=== PATIENT | female | born 1950 | race Caucasian/White ===

== ENCOUNTER 2022-07-14 09:09 | Inpatient (IN) | payer MEDICARE, SELFPAY ==
[2022-07-14] VITALS (12 sets, daily range): BP systolic 74–191; BP diastolic 44–151; PULSE 72–107; RESP 16–24; TEMP 35.8–37.2; O2SAT 92–97; BMI 39.6; BMI 40.2
--- NOTE | 2022-07-14 09:30 | RAD_ITS ---
STUDY: X-RAY CHEST REASON FOR EXAM: Female, 72 years old. Chest pain TECHNIQUE: Single AP portable view of the chest. COMPARISON: None. FINDINGS: EKG electrodes are seen. The lungs are clear and expanded. There is no demonstrated pleural abnormality. Normal size heart. Normal mediastinum and stephen. Normal visualized pulmonary arteries. There is atherosclerotic calcification of the aortic arch with tortuosity. There are diffuse degenerative changes of the visualized thoracic spine. Normal visualized ribs, clavicles, and shoulders. There is no demonstrated abnormality of the visualized soft tissue structures of the upper abdomen. RAD/Chest 1 View (Portable) IMPRESSION: No acute abnormality is seen. Electronically Signed: Weston Temple MD at 10:54 EST ,
--- NOTE | 2022-07-14 09:31 | EDS_ITS ---
HPI History of Present Illness Chief Complaint: Shortness of Breath Informant: patient Onset/Context/Timing Onset: Today and Yesterday Context: gradual Timing: Continuous Quality: Positive for Dyspnea on exertion; Negative for Orthopnea, PND or Wheezing Current Severity: Gone Maximum Severity: Mild Worsened by: Exertion Relieved by: Rest Associated Symptoms Negative for cough or rhinorrhea Chest Pain: Positive for None Narrative Narrative: 72-year-old female past medical history of hypertension but took her self off the medication has been noncompliant with it. States that she has been short of breath since yesterday morning gradual onset of progressively got worse. Denies any chest pain. No leg swelling. No hemoptysis. She is never had a DVT or PE she has had no recent hospitalization about she says she has been in hospital since she has been a child. Denies any nausea, vomiting or diarrhea. No fever or chills. No cough. No trouble urinating or moving her bowels. Said she lives a pretty quiet life at home with her dogs. She was on blood pressure meds but when COVID hit she kind of lost contact with her primary care physician. PE Risk Factors: Negative for Cancer, OCP + Smoking + > 35, Prior DVT or PE, Recent immobilization, Recent surgery or Recent travel Prior similar symptoms: No Recent Illness/Hospitalization: No PFSH PFS Medical History (Updated 07/14/22 @ 14:[address] Jeremias Richardson MD) High cholesterol HTN (hypertension) Home Medications cholecalciferol (vitamin D3) 25 mcg (1,000 unit) tablet 50 mcg PO DAILY SUPPLEMENT 07/14/22 [History Last Taken 07/13/22 09:00] edelmira root extract 50 mg tablet 100 mg PO DAILY SUPPLEMENT 07/14/22 [History Last Taken 07/13/22 09:00] omega-3 fatty acids 1,000 mg capsule 2,000 mg PO DAILY SUPPLEMENT 07/14/22 [History Last Taken 07/13/22 09:00] potassium citrate 99 mg capsule 198 mg PO DAILY SUPPLEMENT 07/14/22 [History Last Taken 07/13/22 09:00] turmeric root extract 500 mg tablet 1,000 mg PO DAILY SUPPLEMENT 07/14/22 [History Last Taken 07/13/22 09:00] vitamin E mixed 1,000 unit capsule 2,000 unit PO DAILY SUPPLEMENT 07/14/22 [History Last Taken 07/13/22 09:00] Allergy/AdvReac Type Severity Reaction Status Date / Time Penicillins [PCN] Allergy Anaphylaxis Verified 07/14/22 09:10 Sulfa (Sulfonamide Allergy Anaphylaxis Verified 07/14/22 09:10 Antibiotics) Surgical History (Updated 07/14/22 @ 13:51 by Georgette Ackerman) H/O right breast biopsy Social History Smoking Status: Never smoker ROS ROS ED ROS Narrative Shortness of breath. Review of Systems ROS Unobtainable: Denies due to encephalopathy Constitutional Constitutional ED: Denies chills or fever(s) Eyes Eyes: Denies blurry vision ENT ENT ED: Denies ear pain Cardiovascular Cardiovascular: Denies chest pain, orthopnea or paroxysmal nocturnal dyspnea Respiratory/Chest Respiratory/Chest: Reports dyspnea and dyspnea on exertion; Denies cough, orthopnea, paroxysmal nocturnal dyspnea or sputum Gastrointestinal Gastrointestinal: Denies abdominal pain or constipation Genitourinary Genitourinary ED: Denies dysuria or hematuria Musculoskeletal Musculoskeletal: Denies arthralgias Integumentary Denies abscess Neurologic Neurologic: Denies headache(s) Psychiatric Psychiatric: Denies anxiety or depression Endocrine Endocrinology: Denies cold intolerance Hematologic/Lymphatic Hematologic/Lymphatic: Denies easy bleeding or easy bruising Allergic/Immunologic Allergic/Immunologic ED: Denies mouth swelling or tongue swelling EXAM Physical Exam Narrative Exam Narrative: 72-year-old female. No acute distress. Vital signs stable except for pressures elevated 191/151. Pulse ox 90% on room air no hypoxia. She is in no distress. States she is not short of breath just sitting here. H EENT exam unremarkable. Neck nontender no lymphadenopathy. Lungs clear to auscultation bilaterally. Heart regular rhythm rate about 110. No murmur. Abdomen soft nontender normal bowel sounds no peritoneal signs. Moving all 4 extremities. Calves are nontender without edema or cords. She has trace edema in her ankles. Neurologically she is awake and alert with no focal motor deficits. Const Vital Signs: 07/14/22 09:11 07/14/22 09:15 07/14/22 09:19 Temperature 96.4 F L 96.8 F L Temperature Source Temporal Temporal Pulse Rate 85 107 H Respiratory Rate 24 H 22 H Respiratory Effort Short of Breath Respiratory Depth Shallow Respiratory Pattern Tachypnea Blood Pressure 191/151 H Blood Pressure Mean 164 Pulse Ox 92 97 Oxygen Delivery Method Room Air Room Air Room Air 07/14/22 09:55 07/14/22 11:52 07/14/22 12:22 Temperature 97.8 F 98.9 F Temperature Source Temporal Temporal Pulse Rate 72 77 Respiratory Rate 16 17 Respiratory Effort Respiratory Depth Respiratory Pattern Blood Pressure 85/57 L 74/44 L Blood Pressure Mean 66 54 Pulse Ox 95 92 94 Oxygen Delivery Method Room Air Room Air Room Air 07/14/22 13:00 Temperature Temperature Source Pulse Rate 77 Respiratory Rate 17 Respiratory Effort Respiratory Depth Respiratory Pattern Blood Pressure Blood Pressure Mean Pulse Ox 94 Oxygen Delivery Method Room Air Positive well nourished, well developed and obese; Negative for cachectic, contractures or unkempt General Appearance ED: well developed and NAD; Negative for unkempt, cachectic, contractures or pallor Nutritional Appearance: obese; Negative for cachectic HEENT Reports moist mucous membranes; Denies dry mucous membranes atraumatic; Negative for trauma or tenderness Mouth ED: No dry mucous membranes Mouth: No dry mucous membranes Eyes PERRL and EOMs intact bilaterally General Eye ED: Negative for pale conjunctiva or scleral icterus Neck no lymphadenopathy, supple, no meningeal signs and no JVD General: Negative for tenderness Lymph Lymphatic: Negative for other Chest Wall Chest: Negative for other Resp normal respiratory effort and clear to auscultation bilaterally Effort and Inspection: Negative for pain with movement Auscultation: Negative for rales, rhonchi or wheezes Cardio regular rhythm, S1 normal heart sound, S2 normal heart sound and no murmurs; Negative for regular rate Rate: tachycardic GI non-tender, non-distended and no masses Inspection: Negative for other Auscultation: normoactive bowel sounds Palpation: soft; Negative for tender or guarding Back/Spine no CVA tenderness and normal to inspection General Back: Negative for CVA tenderness or tenderness Extremity normal to inspection Extremity Narrative: Trace ankle edema. No calf swelling or tenderness. No cords. General Extremety ED: Yes edema; Negative for tenderness General Extremity: edema Neuro oriented x3 and CN's II-XII intact bilaterally Sensorium / Orientation: alert, oriented to person, oriented to place and oriented to time; Negative for orientation impaired, confused, lethargic or stuporous Speech: speech normal Motor Exam: strength 5/5 throughout Psych mental status grossly normal Appearance: Negative for unkempt Attitude: No agitated Mood & Affect: Negative for depressed Thought Process: No normal thought process Skin no wounds and skin turgor normal General Skin Exam: Negative for jaundice or pallor Lesions: no lesions Rashes: no rashes Trauma: Negative for abrasion or laceration MDM MDM MDM Narrative Medical decision making narrative: 72-year-old female with shortness of breath that began yesterday. Exam benign. Lungs are clear. This might all be secondary to her elevated blood pressure of 191/151. There is no obvious signs of failure. She has had 0 chest pain. No cough or fever. I do not think it is a viral related. Initially I do not think she has a respiratory tract infection. She will undergo a cardiac work-up with a chest x-ray. She will be given labetalol IV for her blood pressure. She was previously treated for blood pressure but took her self off the medications and lost follow-up with her primary care physician. Patient was given IV labetalol 20 mg and took her blood pressure from 191/150 5- 90 1/60. She is feeling lightheaded. She will be given a 500 cc fluid bolus. I did reassess her. She just feels lightheaded where she has been laid close to flat in bed. Repeat exam at 11:55 AM patient received a liter normal saline pressure still remains low around 90 systolic. She is given another fluid bolus. She and I discussed her test results. I think her untreated hypertension has caused her to have renal insufficiency and kidney damage with a BUN 24 creatinine 1.93 we have no old labs here to compare it to she said she did have abnormal kidney function at her doctor's office. She also has an elevated troponin of 2410 which makes me concerned for a non-ST elevation IN and possibly a hypertensive cardiomyopathy. I am also going to obtain a ultrasound of her right leg to rule out a DVT. And have a hospitalist on page to admit her. Ultrasound of the leg shows extensive DVT from her right ankle to her right groin. She will be started on a heparin bolus and drip. Due to that and her history of shortness of breath I am going to obtain a CTA of her chest for the strong possibility that she has a PE or even a saddle emboli. Again she is having no chest pain. Repeat exam at 2:14 PM patient doing well. She will be admitted to the floor. Her vital signs are improved. Her blood pressures are improving after IV fluids and currently 104/73. Lab Data Attestation: I reviewed the patient's lab results. Lab results narrative: CBC shows a white count of 10. H&H of 14.1 and 43. Platelets 198. Chemistries are unremarkable gap 11. BUN of 24 creatinine 1.93 consistent with renal sufficiency which may also be from her blood pressure. Glucose 155. Her troponin is elevated 2410 she may have had a non-ST elevation IN from her significant hypertension. Right lower extremity ultrasound shows extensive DVT from the right groin to the right ankle. BNP is elevated at 569. CTA shows multiple bilateral pulmonary emboli. No saddle emboli. Labs: Laboratory Results - last 24 hr 07/14/22 07/14/22 07/14/22 11:10 11:10 11:10 WBC 10.0 RBC 4.87 Hgb 14.1 Hct 43.4 MCV 89.1 MCH 29.0 MCHC 32.5 RDW Std Deviation 42.3 RDW Coeff of [place] 13.0 Plt Count 198 MPV 9.6 Immature Gran % (Auto) 0.500 Neut % (Auto) 76.5 H Lymph % (Auto) 14.4 L [place] % (Auto) 8.2 Eos % (Auto) 0.1 Baso % (Auto) 0.3 Absolute Neuts (auto) 7.7 Absolute Lymphs (auto) 1.45 Nucleated RBC % 0 Sodium 138 Potassium 4.5 Chloride 105 Carbon Dioxide 22.0 Anion Gap 11 BUN 24 H Creatinine 1.93 H Estim Creat Clear Calc 26.00 Est GFR (MDRD) Af Amer 33 L Est GFR (MDRD) Non-Af 27 L BUN/Creatinine Ratio 12.4 Glucose 155 H Calcium 9.0 Troponin I High Sens 2410 H* B-Natriuretic Peptide 569.6 H Radiography Chest X-Ray - ED: 1 View, Read by ED Physician, Heart, Lungs, Mediastinum, Bony Structures, No Acute Disease and Chronic Changes Diagnostic Testing: Clinical Impression(s) from Imaging Studies Chest X-Ray 07/14/22 09:30 IMPRESSION: No acute abnormality is seen. Electronically Signed: Weston Temple MD at 10:54 EST , Chest CTA 07/14/22 12:49 IMPRESSION: Bilateral pulmonary emboli as described. Tiny gallstone in the neck of the gallbladder. Electronically Signed: Weston Temple MD at 14:09 EST , Chest x-ray, portable, single view interpreted by myself shows no acute abnormality. Normal cardiac silhouette. No infiltrates. No pulmonary edema. Rhythm Strip Rhythm Strip: Sinus Rhythm Rate: 111 Ectopy: None EKG Initial EKG: Attestation: I personally reviewed and interpreted this EKG as follows: Interpretation: Sinus Rhythm and No Acute Injury Pattern Comments: Sinus tachycardia rate of 111. No signs of IN. She does have ST depression in leads aVL and lead I. No ST elevation. Follow-up EKG: Attestation: I personally reviewed and interpreted this EKG as follows: Interpretation: Sinus Rhythm Comments: Normal sinus rhythm rate of 73. No significant change from the prior EKG. She does have some ST segment flattening in 1 and aVL. No elevation. Prior: Unchanged Critical Care Time Critical Care Time: Yes Critical care time (excluding procedures): 30-74 minutes, Including time spent:, Discussing w/Patient &/or Family/Telephone Maintainer, Discussing w/Consultants, Arranging Admission or Transfer, Performing Direct Patient Care at Bedside and - (33 min) Discharge Plan Dx/Rx/DC Orders Clinical Impression: Acute dyspnea, Non-ST elevated myocardial infarction, Transient hypotension, Hypertensive cardiovascular-renal disease, Hypertension, Acute deep vein thrombosis (DVT) of right lower extremity, Multiple pulmonary emboli Disposition Disposition: [facility]
--- NOTE | 2022-07-14 09:37 | NURSING ---
NO OLD EKGS
[2022-07-14] MEDS: Labetalol (Prefilled) 20 MG/4 ML IV (10:25)
--- OUTSIDE RECORDS SUMMARY | 2022-07-14 10:29 | XMS RPT_ITS | CCD ---
:1950 Author Organization [facility] Care Team Providers Name Role Phone Gosia Mcmanus Primary Care Provider Allergies Allergy Reported Allergy Type Date of Reaction(s) Facility Classification Allergen(s) Onset Cephalexin Drug Allergy 06-07-2015 [facility] [place] [place] Penicillins Propensity to 06-07-2015 [facility] ([facility]) [facility] [place] reactions to [place] drug Sulfonamides Propensity to 06-07-2015 [facility] (1 source) (Antibiotic) adverse [facility] reactions to [place] drug Medications Current Medications Medication Drug Class(es) Dates Sig (Normalized) Sig (Orig inal) Blood Pressure Monitoring (ADULT BLOOD PRESSURE CUFF LG) KIT Start: Blood Pressure (1 source) 11-01-2017 Monitoring (ADULT BLOOD PRESSURE CUFF LG) KIT Use as directed 1 kit 0 11/01/2017 Active 24 hr carvedilol phosphate 80 mg extended release oral capsu le alpha-Adrenergic Start: take 1 capsule carvedilol (1 source) Dee Dee, 07-01-2020 by mouth once (COREG CR) 80 MG beta-Adrenergic daily at CP24 extende d Dee Dee breakfast release capsule take 1 capsule by mouth once daily with breakfast 30 capsule 0 07/01/2020 Active fluticasone propionate 0.05 mg/actuat metered dose nasal spr ay Corticosteroid Start: take 1 spray(s) fluticasone (1 source) 05-30-2019 nasal route once (FLONASE) 5 0 daily MCG/ACT nasal spray Indications: Viral URI 1 spray by Each Nostril route daily 2 Bottle 1 05/30/2019 Active hydroCHLOROthiazide 25 mg / triamterene 37.5 mg oral tablet Potassium-sparing Start: take 1 tablet by triamterene-hydr (1 source) Diuretic, Thiazide 06-03-2020 mouth once daily oCHLO ROthiazide Diuretic (MAXZIDE-25) 37.5-25 MG per tablet take 1 tablet by mouth daily 90 tablet 0 06/03/2020 Active rosuvastatin calcium 40 mg oral tablet HMG-CoA Reductase Start: take 1 tablet by rosuvastatin (1 source) Inhibitor 07-08-2020 mouth once daily (CRESTOR) 4 0 MG tablet take 1 tablet by mouth once daily 90 tablet 0 07/08/2020 Active Problems Problem Classification Problem Date Documented Date Ep isodic/Chronic Disorders of lipid metabolism Hyperlipidemia; Onset: 06-10-20 15 Chronic (1 source) Translations: 06-10-2015 [Hyperlipidemia LDL goal <100] Essential hypertension Essential Onset: 04-20-2018 Chron ic (1 source) hypertension; 04-20-2018 Translations: [Essential hypertension] Results Test Name Value Interpretation Reference Range Facility [facility] DIGITAL SCREEN BILATERAL on Patient Name: ASHLIE CARRERO Acct#: [place], [place] [id number] Mammography ACCESSION EXAM DATE/TIME PROCEDURE ORDERING PROVIDER [id number] 07/24/2020 11 :50 EST MG Breast Tomosynthesis MD MARIETTA, GOSIA BI Scr [place] CPT code 27337 29738 Reason For Exam (MG Breast Tomosynthesis BI Scr) screening Report TIME SINCE LAST MAMMOGRAM: Last mammogram was performed 1 year and 7 months ago. REASON FOR EXAM: screening, asymptomatic. PROCEDURE: MG BREAST TOMOSYNTHESIS BL SCR: JULY 24, 2020 - 2D/3D Procedure 3D Bilateral CC and MLO view(s) were taken. 2D Bilateral CC and MLO view(s) were taken. Prior study comparison: Shell 2018, bilateral MG breast tomosynthesis bl scr performed at [facility]. November 30, 2017, bilateral MG breast tomosynthesis bl scr performed at [facility]. November 25, 2016, bilateral MG breast tomosynthesis bl scr performed at [facility]. July 08, 2015, bilateral screening mammogram perform ed at [facility]. April 052013, bilateral screening mammogram performed at [facility]. TISSUE DENSITY: BI RADS B - There are scattered fibroglandular densities. . FINDINGS: No suspicious masses, architectural distorti ons or suspiciously clustered microcalcifications are identified. There are no significant changes when comp ared with prior studies. IMPRESSION: No mammographic eviden ce of malignancy. Markings on images: BB's = Nipples; ski n lesions Open chitimacha = Palpable Line = Scar 2D digital mammography and tomosynthesis imaging were performed a nd reviewed with CAD. ASSESSMENT: Category 1 Negative RECOMMENDATION: Routine screening mammogram of both breasts in 1 year. Mammography Report . Report Dictate d on Workstation: [place] Cancer Risk Assessment: This r isk assessment is based on patient provided information collected in a risk survey taken at the time of this examination. Lifetime breast cancer risk: 13.48% - If greater than or equal to 20%, consider annual mammogra m and annual screening Breast MRI or follow up in high r isk clinic. Is the patient at elevated risk based on the H BOC criteria? No (Hereditary Breast and Ovarian Cancer) - If yes, consider genetic counseling and testing with high risk follow up. HNPCC mutation risk (Yusuf Syndrome): 1.6% - if greater than or equal to 5%, consider genetic counseling, testing and screening colonoscopy. --- F inal --- Signed Date and Time: 07/24/2020 1:40 pm Signed by: MD SARA, Alli Vang Incoming Radiolog y Results From [facility] - 07/24/2020 3:18 PM EST Patient Name: ASHLIE CARRERO [place], [place] Mammography ACCESSION EXAM DATE/TIME PROCEDURE ORDERING PROVIDER [id number] 07/24/2020 11:50 EST MG Breast Tomosynthe inderjit MCMANUS MD, GOSIA BI Aide [place] CPT code [id number] Reason For Exam (MG Breast Tomosynthesis BI Scr) screening Report TIME SINCE LAST MAMMOGRAM: L ast mammogram was performed 1 year and 7 months ago. REASON FOR EXAM: screening, asymptomatic. PROCEDURE: MG BREAST TOMOSYN THESIS BL SCR: JULY 24, 2020 - 2D/3D Procedure 3D Bilateral CC and MLO view(s) were taken. 2D Bilateral CC and MLO view(s) were taken. Prior study comparison: December 20, 2018, bilateral MG breast tomosynthesis bl scr performed at [facility]. November 30, 2017, bilateral MG breast tomosynthesis bl scr performed at [facility]. November 25, 2016, bilateral MG breast tomosynthesis bl scr [facility]. July 08, 2015, bilateral screening mammogram performed at [facility]. April 25, 2014, bilateral screening mammogram performed at [facility]. TISSUE DENSITY: BIRADS B - There are scattered fibrogl andular densities. . FINDINGS: No suspicious masses, jaziel ectural distortions or suspiciously clustered microcalcifications are identified. There are no significant changes when compared with pr ior studies. IMPRESSION: No mammographic evidence of malignancy. Markings on images: BB's = Nipples; skin lesions Open chitimacha = Palpable Line = Scar 2D digital mammography and t omosynthesis imaging were performed and reviewed with CAD. ASSESSMENT: Category 1 Negative RECOMMENDATION: Routine screening mammogram of both br easts in 1 year. Mammography Report . Report Dictated on Cancer Risk Assessment: This risk assessment is base d on patient provided information collected in a risk survey taken at the time of this examination. Lifetime breast cancer risk: 13.48% - If greater than or equal t o 20%, consider annual mammogram and annual screening Breast MRI or follow up in high risk clinic. Is the patient at elevated risk based on the HBOC crit eria? No (Hereditary Breast and Ovarian Cancer) - If yes, consider genetic counseling and testing with high risk follow up. HNPCC mutation risk (Yusuf Syndrome): 1.6% - if greater than or equal t o 5%, consider genetic counseling, testing and screening colonoscopy. --- Final --- Signed Date and Time: 07/24/2020 1:40 pm Signed by: MD RUIZ KERISTEN L MG Breast Tomosynthesis Scr Bl on 07-24 MG Breast Tomosynthesis Patient Name: ASHLIE CARRERO [facility] Scr Bl System Mammography ACCESSION EXAM DATE/TIME PROCEDURE ORDERING PROVIDER [id number] 07/24/2020 11:50 EST MG Breast Amos synthesis MD MCMANUS DARRELL BI Scr [place] CPT code [id number] Reason For Exam (MG Breast Tomosynthesis BI Scr) screening Report TIME SINCE LAST MAMMOGRAM: L ast mammogram was performed 1 year and 7 months ago. REASON FOR EXAM: screening, asymptomatic. PROCEDURE: MG BREAST TOMOSYN THESIS BL SCR: JULY 24, 2020 - 2D/3D Procedure 3D Bilateral CC and MLO view(s) were taken. 2D Bilateral CC and MLO view(s) were taken. Prior study comparison: December 20, 2018, bilateral MG breast tomosynthesis bl scr performed at [facility]. November 30, 2017, bilateral MG breast tomosynthesis bl scr performed at [facility]. November 25, 2016, bilateral MG breast tomosynthesis bl scr performed at [facility]. July 08, 2015, bilateral screening mammogram performed at [facility]. April 25, 2014, bilateral screening mammogram performed at [facility]. TISSUE DENSITY: BIRADS B - There are scattered fibrogl andular densities. . FINDINGS: No suspicious masses, jaziel ectural distortions or suspiciously clustered microcalcifications are identified. There are no significant changes when compared with pr ior studies. IMPRESSION: No mammographic evidence of malignancy. Markings on images: BB's = Nipples; skin lesions Open chitimacha = Palpable Line = Scar 2D digital mammography and t omosynthesis imaging were performed and reviewed with CAD. ASSESSMENT: Category 1 Negative RECOMMENDATION: Routine screening mammogram of both br easts in 1 year. Mammography Report . Report Dictated on Cancer Risk Assessment: This risk assessment is base d on patient provided information collected in a risk survey taken at the time of this examination. Lifetime breast cancer risk: 13.48% - If greater than or equal t o 20%, consider annual mammogram and annual screening Breast MRI or follow up in high risk clinic. Is the patient at elevated risk based on the HBOC crit jodie? No (Hereditary Breast and Ovarian Cancer) - If yes, consider genetic counseling and testing with high risk follow up. HNPCC mutation risk (Yusuf Syndrome): 1.6% - if greater than or equal t o 5%, consider genetic counseling, testing and screening colonoscopy. Final Signed Date and Time: 07/24/2020 1:40 pm Signed by: MD RUIZ KERISTEN L HISTORY PHYSICAL on 03-15-2019 HISTORY PHYSICAL HNO ID: [id number] [facility] Author: Anton Meléndez [place] and Service: ? Author Type: Physician Type: HANDP Filed: 03/15/2019 10:58 AM Note Text: HISTORY AND PHYSICAL Ashlie Carrero, 68 year old female Current history and physical on file: No Is a new History and Physical required for today's vis it? Yes Indication for procedure: Occult GI Bleed PROCEDURE(S) SCHEDULED FOR: Colonoscopy with or without biopsies and with or witho ut removal of polyps or lesions, dilation (any means), treatment of bleeding (any means), based on clinical findings. BASELINE BEHAVIOR: Calm BASELINE ORIENTATION: A AND O x3 All medications and allergies reviewed: Yes Skin Assessment: Warm dry muscus membranes pink Airway/Respiratory Assessment: Airway: visualization of the uvula- Yes Mouth: opening greater than 2 fingerbreadths- Yes Neck: full range of motion- Yes Breath sounds clear/equal- Yes Cardiac Assessment: Regular rate and rhythm without murmur Abdominal Assessment: Abdomen soft, non-tender, no masses or organomegaly. Sedation Plan: MAC Additional Comments: None Anton Meléndez MD OBSOLETE on 03-15-2019 OBSOLETE Procedure (ASCNOR) [facility] ASHLIE CARRERO ([id number]) 1950 [place] Date Time Provider Department 03/15/19 10:30 AM ANTON MELÉNDEZ During your visit today, we recorded the following inf ormation about you: Temperature Pulse Respiration Blood pressure 97.3 degrees 60/minute 16/minute 125/61 Weight Height 117.9 kg 1.702 m Bruna Goodson RN 03/15/2019 9:40 AM Signed AMBULATORY PATIENT EDUCATION NOTE TOPIC: GI PROCEDURES: colonoscopy READINESS TO LEARN INSTRUCTION PROVIDED TO: Patient, readness to learn ac cessed prior to procedure, Family member and Patient and family member COGNITIVE ABILITY: Alert and oriented PTED MOTIVATION TO LEARN: Interested FAMILY SUPPORT: High - Very involved in pt care IPATIENT LEARNS BEST BY: Individual Instruction Written Instruction - Hand-outs Verbal Instruction FACTORS AFFECTING LEARNING: None PHYSICAL LIMITATIONS AFFECTING LEARNING: None Bruna Goodson RN 03/15/2019 9:38 AM Signed Discharge instructions given and patient voices unders tanding. All questions answered. Bruna Meléndez MD 03/15/2019 10:58 AM Signed HISTORY AND PHYSICAL Ashlie Carrero, 68 year old female Current history and physical on file: No Is a new History and Physical required for today's vis it? Yes Indication for procedure: Occult GI Bleed PROCEDURE(S) SCHEDULED FOR: Colonoscopy with or without biopsies and with or witho ut removal of polyps or lesions, dilation (any means), treatment of b leeding (any means), based on clinical findings. BASELINE BEHAVIOR: Calm BASELINE ORIENTATION: A AND O x3 All medications and allergies reviewed: Yes Skin Assessment: Warm dry muscus membranes pink Airway/Respiratory Assessment: Airway: visualization of the uvula- Yes Mouth: opening greater than 2 fingerbreadths- Yes Neck: full range of motion- Yes Breath sounds clear/equal- Yes Cardiac Assessment: Regular rate and rhythm without murmur Abdominal Assessment: Abdomen soft, non-tender, no masses or organomegaly. Sedation Plan: MAC Additional Comments: None MD Belinda Travis RN 03/15/2019 12:48 PM Signed POST OP LEARNING RESPONSE INSTRUCTION PROVIDED TO: Patient METHOD OF INSTRUCTION: Individual instruction Written instruction - handouts Verbal instruction PATIENT / FAMILY RESPONSE: Verbalizes understanding of : POST-PROCEDURE INSTRUCTIONS-Correct actions to take to reduce post pr ocedure complications FOLLOW-UP PLAN: Patient instructed to call with any fu rther issues SUPPLEMENTAL MATERIAL: Post op discharge instructions Brochures given to patient: BROCHURE [[id number]] High fiber, colon polyps, diverticulosis and hemorrhoi ds REFERRAL (RECOMMENDATION): Repeat colonoscopy in 5 yea rs Electronically Signed By: Belinda Cole RN In [facility] t: AMBULATORY SURGERY Marquis Reynoso APRN.CRNA 03/15/2019 11:45 AM Signed POST ANESTHESIA EVALUATION NOTE SERVICE DATE: 03/15/2019 SERVICE TIME: 1144 : 1950 Vitals: 03/15/19 0950 03/15/19 1144 Temp: 36.4 ?C (97.5 ?F) 36.3 ?C (97.3 ?F) 03/15/19 0950 03/15/19 1144 BP: 168/95 125/61 03/15/19 0950 03/15/19 1144 Pulse: 67 60 03/15/19 0950 03/15/19 1144 Resp: 16 16 03/15/19 0950 03/15/19 1144 SpO2: 95% 95% Validated Vital Signs: Yes POST ANES STATUS: No apparent anesthetic complications . The patient is appropriately hydrated with stable respiratory and car diovascular status. Patient has safe and adequate airway con trol. The patient has appropriate pain relief and no significant post operative nausea or vom iting. The patient has achieved baseline mental status. Further assessment by Anesthesia Service: None Other Remarks: SIGNATURE: Marquis Reynoso APRN.ENROLLMENT NURSE PATIENT NAME: Mulu Carrero DATE: March 15, 2019 TIME: 11:44 AM PAGER/CONTACT #: [phone] Referring Provider: ANTON MELÉNDEZ [[id number]] Allergies As of Date: 03/15/2019 Noted Allergy Reactio n CEPHALEXIN 06/07/2015 16 - Unknown PENICILLINS 06/07/2015 16 - Unknown SULFA (SULFONAMIDE ANTIBIOTICS) 06/07/2015 16 - Unknow n Date Reviewed: 03/15/2019 Reviewed by: Bruna Goodson RN - Fully Assessed Reason for Visit: Outpatient Colonoscopy [482] Cmt: positive cologaurd Visit Diagnosis:Positive colorectal cancer screening u sing Cologuard test [R19.5] Order(s):COLONOSCOPY - DIAGNOSTIC [[id number]] Order #: [id number]. #:[id number] SURGICAL PATHOLOGY [[id number]] Order #: [id number] Prescriptions as of 03/15/2019 Sig: CARVEDILOL PHOSPHATE ER 80 MG* Take 80 mg by mouth. ROSUVASTATIN 40 MG TABLET Take 40 mg by mouth. TRIAMTERENE 37.5 MG-HYDROCHLO* Take 1 tablet by mouth. MISCELLANEOUS MEDICAL SUPPLY * Use as directed Problem List As Of Date 03/15/2019 Noted Resolved Positive colorectal cancer screening using [place]*INVALI D FOR* Other instructions from your clinician: Discharge instructions given and patient voices unders tanding. All questions answered. Bruna Goodson RN Visit Notes: >> Bruna Goodson RN WedMar 15, 2019 9:38 AM Status: Signed AMBULATORY PATIENT EDUCATION NOTE TOPIC: GI PROCEDURES: colonoscopy READINESS TO LEARN INSTRUCTION PROVIDED TO: Patient, readness to learn ac cessed prior to procedure, Family member and Patient and family member COGNITIVE ABILITY: Alert and oriented PTED MOTIVATION TO LEARN: Interested FAMILY SUPPORT: High - Very involved in pt care IPATIENT LEARNS BEST BY: Individual Instruction Written Instruction - Hand-outs Verbal Instruction FACTORS AFFECTING LEARNING: None PHYSICAL LIMITATIONS AFFECTING LEARNING: None Bruna Goodson RN >> Belinda Cole RN WedMar 15, 2019 11:07 AM Status: S igned POST OP LEARNING RESPONSE INSTRUCTION PROVIDED TO: Patient METHOD OF INSTRUCTION: Individual instruction Written instruction - handouts Verbal instruction PATIENT / FAMILY RESPONSE: Verbalizes understanding of : POST-PROCEDURE INSTRUCTIONS-Correct actions to take to reduce post pr ocedure complications FOLLOW-UP PLAN: Patient instructed to call with any fu rther issues SUPPLEMENTAL MATERIAL: Post op discharge instructions Brochures given to patient: BROCHURE [[id number]] High fiber, colon polyps, diverticulosis and hemorrhoi ds REFERRAL (RECOMMENDATION): Repeat colonoscopy in 5 yea rs Electronically Signed By: Belinda Cole RN In Departmen t: AMBULATORY SURGERY >> Bora Reynoso WedMar 15, 2019 11:44 AM Status: Si gned POST ANESTHESIA EVALUATION NOTE SERVICE DATE: 03/15/2019 SERVICE TIME: 1144 : 1950 Vitals: 03/15/19 0950 03/15/19 1144 Temp: 36.4 ?C (97.5 ?F) 36.3 ?C (97.3 ?F) 03/15/19 0950 03/15/19 1144 BP: 168/95 125/61 03/15/19 0950 03/15/19 1144 Pulse: 67 60 03/15/19 0950 03/15/19 1144 Resp: 16 16 03/15/19 0950 03/15/19 1144 SpO2: 95% 95% Validated Vital Signs: Yes POST ANES STATUS: No apparent anesthetic complications . The patient is appropriately hydrated with stable respiratory and car diovascular status. Patient has safe and adequate airway control. The casi ent has appropriate pain relief and no significant post operative nausea o r vomiting. The patient has achieved baseline mental status. Further assessment by Anesthesia Service: None Other Remarks: SIGNATURE: Marquis Reynoso APRN.CRNA PATIENT NAME: Mulu Carrero DATE: March 15, 2019 TIME: 11:44 AM PAGER/CONTACT #: [phone] Disposition: Return if symptoms worsen or fail to impr ove. Follow-up and Disposition History Recorded Encounter Status:Closed by ANTON MELÉNDEZ on 03/15/19 SURGICAL PATHOLOGY on 03-15-2019 SURGICAL Specimen originated from [facility] [place] [facility] Specimen #: [id number] Clini [facility] Submitting Physician: ANTON Buck FINAL DIAGNOSIS Ascending colon, polypectomy - Fragments of sessile se rrated polyp. MORAIMA/shani 03/16/2019 Gilles Wesley M.D. (Electronic Signature) SPECIMEN SUBMITTED A: ASCENDING COLON POLYP CLINICAL DATA + COLOGUARD GROSS DESCRIPTION A. Received in formalin is a segment of do polypoid t issue measuring 0.5 x 0.4 x 0.3 cm. No stalk is present. The line of resecti on is noted. The specimen is bisected and totally submitted in cassette A1. Also received in the same container are two pieces of do, soft tissue aggregating to 0.7 x 0.2 x <0.1 cm. Totally submitted in cassette A2. Gross examination performed at [facility], [address] [place] [address] FF 03/16/2019 2:18:40 AM Date of Report: 03/16/2019 Date of Procedure: 03/15/2019 Date of Receipt: 03/15/2019 Submitted by: ANTON MELÉNDEZ Location: [facility] Diagnostic interpretation performed at [facility], [address] [place] [address]. CLIA Number: [id number] CNCO on 03-01-[address] CNCO [address] [facility] CNOV on 03-01-2019 CNOV Office Visit (GSTNOR) Normal [place] and ASHLIE Jauregui ([id number]) 1950 [facility] Date Time Provider Department 03/01/19 3:00 PM ANTON MELÉNDEZ During your visit today, we recorded the following inf ormation about you: Pulse Blood pressure Weight Height 64/minute 148/96 117.9 kg 1.702 m Anton Meléndez MD 03/01/2019 3:12 PM Signed CHIEF COMPLAINT: Patient presents with: positive cologuard: Patient has never had a colonoscop y HPI: Ashlie Carrero is a 68 year old female who prese nts for positive cologuard (Patient has never had a colonoscopy). She d enies any melena or hematochezia. Record Review: [facility] / Outside records reviewed. PAST MEDICAL HISTORY Diagnosis Date - HTN (hypertension) - Hyperlipidemia PAST SURGICAL HISTORY Procedure Laterality Date - NONE Allergies: ALLERGIES Allergen Reactions - Cephalexin Unknown - Penicillins Unknown - Sulfa (Sulfonamide * Unknown Medications: carvedilol (COREG CR) 80 mg 24 hr capsule Take 80 mg b y mouth. Miscellaneous Medical Supply (BLOOD PRESSURE CUFF) mis c Use as directed rosuvastatin (CRESTOR) 40 mg tablet Take 40 mg by mout h. triamterene-hydrochlorothiazide (MAXZIDE-25) 37.5-25 m g per tablet Take 1 tablet by mouth. FAMILY HISTORY Problem Relation Age of Onset - Cervical Cancer Mother - Heart disease Father - other (ulcerative colitis) Father Employer And Job Title: None on file Years Of Education Completed: Not specified Marital Status: Single Social History Tobacco Use - Smoking status: Never Smoker - Smokeless tobacco: Never Used Substance Use Topics - Alcohol use: Yes Comment: glass of wine every 1-2 weeks - Drug use: Never Review of Systems: Review of Systems Constitutional: Positive for activity change. Are you taking any blood thinners? No Physical Examination: BP 148/96 Pulse 64 Ht 5' 7 (1.70m) Wt 260 lb (117.9kg) SpO2 96% BMI 40.71 kg/(m2). Physical Exam Constitutional: She is oriented to person, place, and time. She appears well-developed and well-nourished. HENT: Head: Normocephalic. Eyes: Pupils are equal, round, and react lashonda to light. Conjunctivae and EOM are normal. Neck: Normal range of motion. Neck supple. Cardiovascular: Normal rate, regular rhythm, normal he art sounds and intact distal pulses. Pulmonary/Chest: Effort normal and breath sounds breana l. Abdominal: Soft. Bowel sounds are normal. Musculoskeletal: Normal range of motion. Neurological: She is alert and oriented to person, lawrence ce, and time. She has normal reflexes. Skin: Skin is warm and dry. Psychiatric: She has a breana l mood and affect. Her behavior is normal. Judgment and thought content normal. Vitals reviewed. Assessment: Positive colorectal cancer screening using cologuard t est Plan: Office Visit on 03/01/19 - COLONOSCOPY - DIAGNOSTIC - IV DISCONTINUE - INSERT IV ([place]) - INSERT IV ([place]) Return if symptoms worsen or fail to improve. I have confirmed and edited as necessary , the PFSH and ROS obtained by others. Anton Meléndez MD DATE: 03/01/19 TIME: 3:09 PM Anton Meléndez MD 03/01/2019 3:11 PM Signed SPLIT DOSE MIRALAX-GATORADE PREPARATION Arrive one hour early for your procedure. To ensure a successful exam, please follow all instruc tions carefully. You MUST arrange a ride for the day of your exam. If y ou fail to arrange acceptable transportation, your procedure will n eed to be rescheduled. Please bring a list of all of your current medications, including any Nsex-kan-Nyfyhwu medications with you. DIABETIC PATIENTS Use G2 or (Gatorade 2) Take only ? of your morning dose of insulin or tablets the day before your exam. Do not take any more of your diabe tic medications until the procedure is over and you have resumed eating again. Drink regular liquids (not diabetic) and monitor your sugar throughout the day you are on c lear liquids. If your sugar gets too low, drink some apple juice. PURCHASE THE FOLLOWING SUPPLIES AT YOUR LOCAL PHARMACY : - 4 Dulcolax laxative tablets containing 5mg of bisaco dyl each (NOT Dulcolax stool softener) - 1- 8.3oz bottle Miralax (238 grams) or generic equiv alent. - 64 oz. clear liquid (NOT red). Gatorade, G2, Gatorad e, G2, Gatorade Ice, PowerAde or PowerAde Zero are acceptable. 7 DAYS BEFORE YOUR COLONOSCOPY: If you take aspirin or NSAID S such as Advil, Motrin, Celebrex or Ibuprofen, you may continue to take them as usual unless otherwise in structed by your physician. You should discuss this with your physician in advance of the procedure. Ask your doctor for specific instructions i f you take a blood thinner like Plavix, Pradaxa, Clopidogrel, Coumadin, W arfarin, Effient, Prasugrel or Lovenox. 3 DAYS BEFORE COLONOSCOPY: Stop eating all nutes, seeds and popcorn. 1 DAY BEFORE YOUR COLONOSCOPY: Begin a clear liquid diet. Drink at leas t 8 glasses of water during the day to avoid dehydration. At 5pm, take 4 Dulcolax tablets. Mix 64oz. liquid with 8.[address] in the refrigerator (DO NOT ADD ICE) At 6pm, drink 32 oz. of the Miralax/Gatorade solution. 4 hours prior to procedure, drink the re maining 32 oz. of the Miralax/Gatorade solution. Clear Liquid Not Clear Liquid Gatorade, Pedialyt e or PowerAde No red items of any kind Clear broth or bouillon No alcohol Coffee or tea (no milk or non-dairy creamer) No milk o r non-dairy creamers Carbonated and non-carbonated soft drinks No noodles o r vegetables in soup Jah-Aid or other fruit flavored drinks No juice with pulp Strained fruit juices (no pulp) No liquid you cannot s ee through Jell-O, popsicles, hard candy No gum or candy DAY OF YOUR COLONOSCOPY: You may take your blood pressure or hear t medication with a sip of water up to 3 hours before your procedur e. 2 hours before, stop drinking all clear liquids. You are ready for the exam if you followed all i nstructions and your stool is no longer formed, but clear or yellow liquid. COLON CLEANSING TIPS 1. Stay near a toilet! You will have delmis rrhea, which can be quite sudden. This is normal. 2. It is common to experience abdominal discomfort until the stool has flushed from your colon (this may take 2-4 hours, and occasion ally significantly longer). 3. Rarely, people may experience nausea or vomiting wi th the prep. If this occurs, give yourself a 30-90 minute break, rinse your mouth or brush your teeth, then continue drinking the prep solution. 4. Anal skin irritation or a flare of hemorrhoid inflammation may occur and can be treated with a variety of over the counter remedies including hydrocortisone creams, baby wipes or Tucks pads. Avoid products conta ining alcohol. If you have a prescription for hemorrhoid cream, you may use it. Do not use suppositories. Referring Provider: GOSIA MCMANUS [[id number]] Allergies As of Date: 03/01/2019 Noted Allergy Reactio n CEPHALEXIN 06/07/2015 16 - Unknown PENICILLINS 06/07/2015 16 - Unknown SULFA (SULFONAMIDE ANTIBIOTICS) 06/07/2015 16 - Unknow n Date Reviewed: 03/01/2019 Reviewed by: Merna Fontana LPN - Fully Assessed Reason for Visit: positive cologuard [Other] Cmt: Patient has never had a colonoscopy Reason For Visit History Recorded Visit Diagnosis:Positive colorectal cancer screening u sing Cologuard test [R19.5] Order(s):[place] ([place] [2740491] Order #: [id number]: 1 FUTURE IV DISCONTINUE [[id number]] Order #: [id number]: 1 FUT URE [place] [[id number]] Order #: [id number]: 1 COLONOSCOPY - DIAGNOSTIC [[id number]] Order #: [id number] FUTURE Prescriptions as of 03/01/2019 Sig: CARVEDILOL PHOSPHATE ER 80 MG* Take 80 mg by mouth. MISCELLANEOUS MEDICAL SUPPLY * Use as directed ROSUVASTATIN 40 MG TABLET Take 40 mg by mouth. TRIAMTERENE 37.5 MG-HYDROCHLO* Take 1 tablet by mouth. Problem List As Of Date 03/01/2019 Noted Resolved Positive colorectal cancer screening using [place]*INVALI D FOR* Other instructions from your clinician: SPLIT DOSE MIRALAX-GATORADE PREPARATION Arrive one hour early for your procedure. To ensure a successful exam, please follow all instruc tions carefully. You MUST arrange a ride for the day of your exam. If y ou fail to arrange acceptable transportation, your procedure will need to be rescheduled. Please bring a list of all of your current medications , including any Sctf-bty-Neshbjr medications with you. DIABETIC PATIENTS Use G2 or (Gatorade 2) Take only ? of your morning dose of insulin or tablets the day before your exam. Do not take any more of your diabetic medication s until the procedure is over and you have resumed eating again. D rink regular liquids (not diabetic) and monitor your sugar throughout the d ay you are on clear liquids. If your sugar gets too low, drink some apple juice. PURCHASE THE FOLLOWING SUPPLIES AT YOUR LOCAL PHARMACY : - 4 Dulcolax laxative tablets containing 5mg of bisaco dyl each (NOT Dulcolax stool softener) - 1- 8.3oz bottle Miralax (238 grams) or generic equiv alent. - 64 oz. clear liquid (NOT red). Gatorade, G2, Gatorad e, G2, Gatorade Ice, PowerAde or PowerAde Zero are acceptable. 7 DAYS BEFORE YOUR COLONOSCOPY: If you take aspirin or NSAIDS such as Advil, Motrin, C elebrex or Ibuprofen, you may continue to take them as usual unle ss otherwise instructed by your physician. You should discuss this with your physician in advance of the procedure. Ask your doctor for speci fic instructions if you take a blood thinner like Plavix, Pradaxa, Clopido grel, Coumadin, Warfarin, Effient, Prasugrel or Lovenox. 3 DAYS BEFORE COLONOSCOPY: Stop eating all nutes, seeds and popcorn. 1 DAY BEFORE YOUR COLONOSCOPY: Begin a clear liquid diet. Drink at least 8 glasses of water during the day to avoid dehydration. At 5pm, take 4 Dulcolax tablets. Mix 64oz. liquid with 8.[address] in the refrigerator (DO NOT ADD ICE) At 6pm, drink 32 oz. of the Miralax/Gatorade solution. 4 hours prior to procedure, drink the remaining 32 oz. of the Miralax/Gatorade solution. Clear Liquid Not Clear Liquid Gatorade, Pedialyte or P owerAde No red items of any kind Clear broth or bouillon No alcohol Coffee or tea (no milk or non-dairy creamer) No milk o r non-dairy creamers Carbonated and non-carbonated soft drinks No noodles o r vegetables in soup Jah-Aid or other fruit flavored drinks No juice with pulp Strained fruit juices (no pulp) No liquid you cannot s ee through Jell-O, popsicles, hard candy No gum or candy DAY OF YOUR COLONOSCOPY: You may take your blood pressure or heart medication w ith a sip of water up to 3 hours before your procedure. 2 hours before, s top drinking all clear liquids. You are ready for the exam if you followed all instruc tions and your stool is no longer formed, but clear or yellow liquid. COLON CLEANSING TIPS 1. Stay near a toilet! You will have diarrhea, which c an be quite sudden. This is normal. 2. It is common to experience abdominal discomfort unt il the stool has flushed from your colon (this may take 2-4 hours, and occasionally significantly longer). 3. Rarely, people may experience nausea or vomiting wi th the prep. If this occurs, give yourself a 30-90 minute break, rinse your mouth or brush your teeth, then continue drinking the prep solution. 4. Anal skin irritation or a flare of hemorrhoid infla mmation may occur and can be treated with a variety of over the counter remedies including hydrocortisone creams, baby wipes or Tucks pads. Avoid products containing alcohol. If you have a prescription for hemorrhoid cre am, you may use it. Do not use suppositories. Disposition: Return if symptoms worsen or fail to impr ove. Follow-up and Disposition History Recorded Encounter Status:Closed by ANTON MELÉNDEZ on 03/01/19 PROGRESS on 03-01-2019 PROGRESS HNO ID: [id number] [facility] Author: Anton Meléndez [place] and Service: ? Author Type: Physician Type: Progress Notes Filed: 03/01/2019 3:12 PM Note Text: CHIEF COMPLAINT: Patient presents with: positive cologuard: Patient has never had a colonoscop y HPI: Ashlie Carrero is a 68 year old female who prese nts for positive cologuard (Patient has never had a colonoscopy). She d enies any melena or hematochezia. Record Review: [facility] / Outside records reviewed. PAST MEDICAL HISTORY Diagnosis Date - HTN (hypertension) - Hyperlipidemia PAST SURGICAL HISTORY Procedure Laterality Date - NONE Allergies: ALLERGIES Allergen Reactions - Cephalexin Unknown - Penicillins Unknown - Sulfa (Sulfonamide * Unknown Medications: carvedilol (COREG CR) 80 mg 24 hr capsule Take 80 mg b y mouth. Miscellaneous Medical Supply (BLOOD PRESSURE CUFF) mis c Use as directed rosuvastatin (CRESTOR) 40 mg tablet Take 40 mg by mout h. triamterene-hydrochlorothiazide (MAXZIDE-25) 37.5-25 m g per tablet Take 1 tablet by mouth. FAMILY HISTORY Problem Relation Age of Onset - Cervical Cancer Mother - Heart disease Father - other (ulcerative colitis) Father Employer And Job Title: None on file Years Of Education Completed: Not specified Marital Status: Single Social History Tobacco Use - Smoking status: Never Smoker - Smokeless tobacco: Never Used Substance Use Topics - Alcohol use: Yes Comment: glass of wine every 1-2 weeks - Drug use: Never Review of Systems: Review of Systems Constitutional: Positive for activity change. Are you taking any blood thinners? No Physical Examination: BP 148/96 Pulse 64 Ht 5' 7 (1.70m) Wt 260 lb (1 17.9kg) SpO2 96% BMI 40.71 kg/(m2). Physical Exam Constitutional: She is oriented to person, place, and time. She appears well-developed and well-nourished. HENT: Head: Normocephalic. Eyes: Pupils are equal, round, and reactive to light. Conjunctivae and EOM are normal. Neck: Normal range of motion. Neck supple. Cardiovascular: Normal rate, regular rhythm, normal he art sounds and intact distal pulses. Pulmonary/Chest: Effort normal and breath sounds breana l. Abdominal: Soft. Bowel sounds are normal. Musculoskeletal: Normal range of motion. Neurological: She is alert and oriented to person, lawrence ce, and time. She has normal reflexes. Skin: Skin is warm and dry. Psychiatric: She has a normal mood and affect. Her beh avior is normal. Judgment and thought content normal. Vitals reviewed. Assessment: Positive colorectal cancer screening using cologuard t est Plan: Office Visit on 03/01/19 - COLONOSCOPY - DIAGNOSTIC - IV DISCONTINUE - INSERT IV ([place]) - INSERT IV ([place]) Return if symptoms worsen or fail to improve. I have confirmed and edited as necessary, the PFSH and ROS obtained by others. Anton Meléndez MD DATE: 03/01/19 TIME: 3:09 PM Encounters Encounter Date Encounter Type Care Provider Facility Start: 07-24-2020 [facility] Gosia VALENCIA W ashely Mammo End: 07-24-2020 visit by physician Work Phone: Comment on above: Arrived Procedures Date Procedure Procedure Detail Performing Clin ician Start: 07-24-2020 Screening digital breast Darre joaquim Mcmanus [employer] bi Work Phone: Plan of Treatment Date Care Activity Detail Author Start: 03-15-2029 Screening for malignant Colon cancer screen [facility] [place], [place] neoplasm of colon colonoscopy Start: 07-24-2022 Screening for malignant Breast cancer screen [place], [place] neoplasm of breast Start: 07-25-2021 Office Visit 07/25/2021 Office Visit [facility] Medical End: 07-25-2021 Family Group Arabella Camarena MD [address] [place] [address] [phone] Start: 07-20-2021 Annual Wellness Visit Annual Wellness Visit [place], [place] (AWV) (AWV) Start: 07-19-2021 Creatinine measurement Creatinine monitoring [place], [place] Start: 07-19-2021 Lipid panel Lipid screen [place], [place] Start: 07-19-2021 Potassium monitoring Potassium monitoring [place], [place] Start: 07-17-2021 Screening for DEXA (modify frequency [place], [place] osteoporosis per FRAX score) Comment on above: Postponed from 2006 (P atient Refused) Start: 01-17-2021 Office Visit 01/17/2021 Office Visit [facility] Medical End: 01-17-2021 Group Arabella Cooper MD [address] [place] [address] [phone] Start: 08-06-2020 Nurse Only 08/06/2020 Nurse Only [facility] Medical End: 08-06-2020 Family Medicine Group Suhail Ruiz [facility] Start: 09-13-2012 Shingles Vaccine (2 Shingles Vaccine (2 of 3) [place], [place] of 3) Start: 1991 Diabetes screen Diabetes screen [place], [place] Start: 1970 DTaP/Tdap/Td vaccine DTaP/Tdap/Td vaccine (1 - [place], [place] (1 - Tdap) Tdap) Immunizations Immunization Date Immunization Notes Care Provider Facility 07-19-2020 Influenza, High-dose, Gosia Mcmanus [place], [place] Quadv, 65 yrs +, IM (Fluzone) 05-01-2019 Seasonal trivalent Gosia Choe [place], [place] influenza vaccine, adjuvanted, preservative free 04-20-2018 influenza, high dose Gosia Mcmanus [place], [place] seasonal, preservative-free 11-01-2017 pneumococcal Gosia Mcmanus [place] polysaccharide vaccine, 23 valent 10-05-2016 pneumococcal conjugate Gosia Mcmanus [place], [place] vaccine, 13 valent 10-05-2016 Td, unspecified Gosia Mas [place], [place] formulation 06-04-2016 Influenza Vaccine, Gosia Choe [place], [place] unspecified formulation 06-10-2015 influenza virus vaccine, Gosia Mcallister [place], [place] unspecified formulation 07-19-2012 zoster vaccine, live Gosia Mcmanus [place], [place] 05-25-2012 pneumococcal Conjugate, Gosia Mcmanus [place], [place] unspecified formulation Payers Date Payer Category Payer Medicare MEDICARE MEDICARE PART A AND B 4 [id number] 2016-Present [id number] [phone] [address] [address] [phone] [place] [address] 2015 Unknown [employer] [facility] [id number] [address] [id number] 2015-Present [phone] [address] [place] [address] Social History Date Type Detail Facility Start: 07-19-2020 Tobacco smoking status Never smoker [place] Start: 07-19-2020 Tobacco use and exposure Never used [place] Start: 07-19-2020 [facility] intake [facility] [place] [place] [facility] Start: 12-09-2018 History SDOH Physical 3 Tg De Oliveira [place], [place] Activity DPW Start: 12-09-2018 History SDOH Physical 2 Tg De Oliveira [place] Activity MPS Start: 12-09-2018 [facility] Start[facility] 12-09-2018 [facility] [address] [facility] Start: 06-10-2015 Alcohol Comment social [facility] [place] Sex Assigned At Not on file [facility] Exposure to SARS-CoV-2 Not sure [facility] [place] [facility] [place] (event) Goals Date Patient Goal Desired Activity/Sta te Comment on above: Self- Management Plan: Obesi ty/Weight Loss Patient Stated Goal: no real goal just want to loose weight Barriers to success: lack of motivation Plan for overcoming my barri ers: finding the time to exercise. Encouraged and recommended by provider. Confidence: 11/11 Self-Management Plan: Will s trive to achieve goal by a year Date goal set: 10/05/16 Patient given educational ma terials below via AVS. Provider Goal: Healthy diet and exercise. Patient received counseling about current lifestyle goal. Advised approximately 150 minutes of cardio, i.e treadmill, exercise in a week. Advised strive for 5 a total 5 servings of fruit s and vegetables in a day. Advised a diet lower in carbohydrates and simple sugars. They need to watch consumption of bread, rice, pasta, potatoes, corn, soda, sweetened tea, lemonade, and all other sugar drinks. Patient given after visit [facility] which includes educational information on weight loss. Discussed use, benefit, and side effects of prescribed medications and barriers to medication compliance addressed, if applicable. All patient questions answered and patient voiced understanding. Hector stout was given a copy of this, and was advised to call if any questions. 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 This clinical summary was aggregated from multiple sources. Caution should be exercised in using it in the provision of clinical care. This summary normalizes information from multiple sources, and as a consequence, information in this document may materially change the coding, format and clinical context of patient data. In addition, data may be omittedin some cases. CLINICAL DECISIONS SHOULD BE BASED ON THE PRIMARY CLINICAL RECORDS. [facility]. provides no warranty or guarantee of the accuracy or completeness of information in this document.
[2022-07-14] MEDS: 0.9% Normal Saline 1,000 ML 999 ML IV (11:00)
[2022-07-14 11:20] LABS: Absolute Lymphocyte Count 1.45 X10^3/uL (0.83-4.51); Absolute Neutrophil Count 7.7 X10^3/uL (2.0-7.7); Basophil# 0.03 X10^3/uL; Basophil% 0.3 % (0-1); Eosinophil# 0.01 X10^3/uL; Eosinophils% 0.1 % (0-5); Hematocrit 43.4 % (37-47); Hemoglobin 14.1 g/dL (12.0-15.0); Lymphocyte # 1.45 X10^3/ul (0.83-4.51); Lymphocyte % 14.4 % (19-41); Mean Corp Hgb Conc 32.5 g/dL (32-36); Mean Corpuscular Volume 89.1 fL (81-99); Mean Platelet Vol. 9.6 fl (6.2-12.0); Monocyte# 0.82 X10^3/uL; Monocyte% 8.2 % (0-10); NRBC Flagged by Analyzer 0 % (0-5); Neutrophil # 7.68 X10^3/uL (2.7-7.7); Neutrophil % 76.5 % (47-70); Platelet Count 198 K/mm3 (150-450); RBC Distribution Width SD 42.3 fl (35.1-43.9); Red Blood Count 4.87 M/mm3 (4.2-5.4)
[2022-07-14 11:39] LABS: Anion Gap 11 (5-15); BUN 24 mg/dL (7-18); BUN/Creat Ratio 12.4 RATIO (10-20); Chloride 105 mmol/L (98-107); Creatinine, Serum 1.93 mg/dL (0.55-1.02); EST Glomerular Filtration Rate 27 mL/min (>60); Est Glom Filt Rate - Afr Amer 33 mL/min (>60); Glucose 155 mg/dL (74-106); Potassium 4.5 mmol/L (3.5-5.1); Sodium Level 138 mmol/L (136-145); Troponin-I HS (w/2H Reflex) 2410 pg/mL (3.0-54.0)
--- NOTE | 2022-07-14 11:56 | ED.RN ---
pt diaphoretic, neck pain but denies chest pain. notified MD of vital signs.
--- NOTE | 2022-07-14 12:00 | VDLE_ITS ---
Reason For Study: LEG SWELLING RIGHT LEFT RT GSV is normal. CFV is compressible, spontaneous, competent, RT CFV is compressible, spontaneous, and demonstrates pulsatile venous flow. competent and demonstrates pulsatile venous flow. Echoes noted on vein rodriges near SF Junction. RT SFV is dilated and non-compressible w/intraluminal echoes RT POP V is dilated and non-compressible w/intraluminal echoes RT T/P Trunk is dilated and non-compressible w/intraluminal echoes RT PTV is dilated and non-compressible w/intraluminal echoes. RT Gastroc V is dilated and non-compressible w/intraluminal echoes. RT PerV is compressible. Procedure This is a venous duplex using B-mode, color flow and spectral Doppler. Exam performed portable in ED. The exam was diagnostic. A preliminary report was called and/or faxed to Dr. Richardson. VL/Venous Duplex US, Unilateral Interpretation Summary Acute deep venous thrombosis right femoral, popliteal, tibioperoneal trunk, pos terior tibial, and gastrocnemius veins. Patent and compressible right great saphenous vein Pulsatile venous flow is noted in bilateral common femoral veins consistent wit h proximal venous hypertension or obstruction. Clinical correlation would be appropriate. Ordering Physician: Jeremias Richardson Performed By: Sigifredo Chao RVT
[2022-07-14 12:22] LABS: BNP,B-Type NATRIURETIC PEPTIDE 569.6 pg/mL (0-100)
--- NOTE | 2022-07-14 12:22 | NURSING ---
dr lentz for dr gillis
--- NOTE | 2022-07-14 12:49 | CT_ITS ---
STUDY: CTA CHEST REASON FOR EXAM: Female, 72 years old. DVT suspect PE. Dyspnea. Hypotensive. Dizziness. RADIATION DOSAGE (If Supplied By Facility): CTDIvol = ( 13.85 ) mGy, DLP = ( 564.39 ) mGycm TECHNIQUE: The examination was performed with the intravenous administration of IV 100mL Isovue-300. Post-processing of the angiographic images was performed, with multiplanar reformation and 3D reconstruction. Individualized dose optimization techniques were used for this CT. COMPARISON: Comparison is made with prior chest radiograph done earlier today. FINDINGS: Intraluminal filling defects seen in the distal portion of the right main pulmonary artery extending into the interlobar artery as well as branches of the right lower lobe pulmonary artery. Intraluminal filling defects are also seen in branches of the right upper pulmonary artery. There is also evidence of multiple intraluminal filling defects in branches of the left interlobar artery as well as branches of the left upper and lower pulmonary arterial branches. Normal thoracic aorta and visualized great vessels. There is no demonstrated aortic dissection. There are calcifications of the coronary arteries. Normal mediastinum. Normal hilar regions. Normal visualized trachea and bronchi. The lungs are well expanded. Normal pulmonary parenchyma. Normal pleura. Normal chest wall structures. There are degenerative changes of thoracic spine. Tiny gallstone in the neck of the gallbladder. CT/CTA Chest W/WO Contrast IMPRESSION: Bilateral pulmonary emboli as described. Tiny gallstone in the neck of the gallbladder. Electronically Signed: Weston Temple MD at 14:09 EST ,
--- OUTSIDE RECORDS SUMMARY | 2022-07-14 13:01 | XMS RPT_ITS | CCD ---
:1950 Author Organization [facility] Care Team Providers Name Role Phone Gosia Mcmanus Primary Care Provider Allergies Allergy Reported Allergy Type Date of Reaction(s) Facility Classification Allergen(s) Onset Cephalexin Drug Allergy 06-07-2015 [facility] [place] Penicillins Propensity to 06-07-2015 [facility] reactions to [place] drug Sulfonamides Propensity to 06-07-2015 [facility] (1 source) (Antibiotic) adverse [place] reactions to [place] drug Medications Current Medications Medication Drug Class(es) [...] Test Name Value Interpretation Reference Range Facility [facility] AMOS DIGITAL SCREEN BILATERAL on Patient Name: ASHLIE CARRERO Acct#: [place], [place] [id number] Mammography ACCESSION EXAM DATE/TIME PROCEDURE ORDERING PROVIDER [id number] 07/24/2020 11 :50 EST MG Breast Tomosynthesis MD MARIETTA, GOSIA BI Scr [place] CPT code 47970 82194 Reason For Exam (MG Breast Tomosynthesis BI [...] MG breast tomosynthesis bl scr performed at [facility]. November 30, 2017, bilateral MG breast tomosynthesis bl scr performed at [facility]. November 25, 2016, bilateral MG breast tomosynthesis bl scr performed at [facility]. July 08, 2015, bilateral screening mammogram perform ed at [facility]. April 052013, bilateral screening mammogram performed at [facility]. TISSUE DENSITY: BI RADS B - There are scattered fibroglandular densities. . FINDINGS: No suspicious masses, architectural distorti ons or suspiciously clustered microcalcifications are identified. There are no significant changes when comp ared with prior studies. IMPRESSION: No mammographic eviden ce of malignancy. Markings on images: BB's = Nipples; ski n lesions Open [place] croix = Palpable Line = Scar 2D digital mammography and tomosynthesis imaging were performed a nd reviewed with CAD. ASSESSMENT: Category 1 Negative RECOMMENDATION: Routine screening mammogram of both breasts in 1 year. Mammography Report . Report Dictate d on Workstation: [employer] Cancer Risk Assessment: This r isk assessment [...] 3:18 PM EST Patient Name: ASHLIE CARRERO [place] Mammography ACCESSION EXAM DATE/TIME PROCEDURE ORDERING PROVIDER [id number] 07/24/2020 11:50 EST MG Breast Tomosynthe inderjit MCMANUS MD, GOSIA BI Aide [place] CPT code 67927 [id number] Reason For Exam (MG Breast Tomosynthesis BI [...] MG breast tomosynthesis bl scr performed at [facility]. November 30, 2017, bilateral MG breast tomosynthesis bl scr performed at [facility] at [facility]. November 25, 2016, bilateral MG breast tomosynthesis bl scr [facility]. July 08, 2015, bilateral screening mammogram [facility]. April 25, 2014, bilateral screening mammogram performed at [facility]. TISSUE DENSITY: BIRADS B - There are scattered fibrogl andular densities. . FINDINGS: No suspicious masses, jaziel ectural distortions or suspiciously clustered microcalcifications are identified. There are no significant changes when compared with pr ior studies. IMPRESSION: No mammographic evidence of malignancy. Markings on images: BB's = Nipples; skin lesions Open [place] croix = Palpable Line = Scar 2D digital [...] MG Breast Tomosynthesis Patient Name: ASHLIE CARRERO [facility] Scr Bl System Mammography ACCESSION EXAM DATE/TIME PROCEDURE ORDERING PROVIDER [id number] 07/24/2020 11:50 EST MG Breast Amos synthesis MD MCMANUS DARRELL BI Scr [place] CPT code [id number] Reason For Exam (MG Breast Tomosynthesis BI [...] MG breast tomosynthesis bl scr performed at [facility]. November 30, 2017, bilateral MG breast tomosynthesis bl scr performed at [facility]. November 25, 2016, bilateral MG breast tomosynthesis bl scr performed at [facility]. July 08, 2015, bilateral screening mammogram performed at [facility]. April 25, 2014, bilateral screening mammogram performed at [facility]. TISSUE DENSITY: BIRADS B - There are scattered fibrogl andular densities. . FINDINGS: No suspicious masses, jaziel ectural distortions or suspiciously clustered microcalcifications are identified. There are no significant changes when compared with pr ior studies. IMPRESSION: No mammographic evidence of malignancy. Markings on images: BB's = Nipples; skin lesions Open [place]. croix = Palpable Line = Scar 2D digital [...] PHYSICAL on 03-15-2019 HISTORY PHYSICAL HNO ID: [id number] [facility] Author: Anton Meléndez Clevel and Service: ? [...] MD OBSOLETE on 03-15-2019 OBSOLETE Procedure (ASCNOR) [facility] ASHLIE CARRERO ([id number]) 1950 F [place] Date Time Provider Department 03/15/19 10:30 AM [...] discharge instructions Brochures given to patient: BROCHURE [85643] High fiber, colon polyps, diverticulosis and hemorrhoi ds REFERRAL (RECOMMENDATION): Repeat colonoscopy in 5 yea rs Electronically Signed By: Belinda Cole RN In [facility] t: AMBULATORY SURGERY Marquis Reynoso [...] Service: None Other Remarks: SIGNATURE: Marquis Reynoso APRN.E/M ENGINEER PATIENT NAME: Mulu Carrero DATE: March 15, 2019 TIME: 11:44 AM PAGER/CONTACT #: [phone] Referring Provider: ANTON MELÉNDEZ [[id number]] Allergies As of Date: 03/15/2019 Noted Allergy Reactio n CEPHALEXIN 06/07/2015 16 - Unknown PENICILLINS 06/07/2015 16 - Unknown SULFA (SULFONAMIDE ANTIBIOTICS) 06/07/2015 16 - Unknow n Date Reviewed: 03/15/2019 Reviewed by: Bruna Goodson RN - Fully Assessed Reason for Visit: Outpatient Colonoscopy [482] Cmt: positive cologaurd Visit Diagnosis:Positive colorectal cancer screening u sing Cologuard test [R19.5] Order(s):COLONOSCOPY - DIAGNOSTIC [[id number]] Order #: [id number]. #:[id number] SURGICAL PATHOLOGY [[id number]] Order #: [id number] Prescriptions as of 03/15/2019 Sig: CARVEDILOL PHOSPHATE ER 80 MG* Take 80 mg by mouth. ROSUVASTATIN 40 MG TABLET Take 40 mg by mouth. TRIAMTERENE 37.5 MG-HYDROCHLO* Take 1 tablet by mouth. MISCELLANEOUS MEDICAL SUPPLY * Use as directed Problem List As Of Date 03/15/2019 Noted Resolved Positive colorectal cancer screening using [place]*INVALI D FOR* Other instructions from your clinician: [...] discharge instructions Brochures given to patient: BROCHURE [79744] High fiber, colon polyps, diverticulosis and hemorrhoi [...] 15, 2019 TIME: 11:44 AM PAGER/CONTACT #: [phone] Disposition: Return if symptoms worsen or fail to impr ove. Follow-up and Disposition History Recorded Encounter Status:Closed by ANTON MELÉNDEZ on 03/15/19 SURGICAL PATHOLOGY on 03-15-2019 SURGICAL Specimen originated from [facility] PATHOLOGY Specimen #: [id number] Clini c Submitting Physician: ANTON Buck FINAL [...] in cassette A2. Gross examination performed at [facility], [address] [place] [address] FF 03/16/2019 2:18:40 AM Date of Report: 03/16/2019 Date of Procedure: 03/15/2019 Date of Receipt: 03/15/2019 Submitted by: ANTON MELÉNDEZ Location: [facility] Diagnostic interpretation performed at [facility], [address] [place] [address]. CLIA Number: [id number] CNCO on 03-01-2019 CNCO Letter Text Normal [facility] CNOV on 03-01-2019 CNOV Office Visit (GSTNOR) Normal Clevel and ASHLIE Jauregui ([id number]) 1950 [facility] Date Time Provider Department 03/01/19 3:00 PM ANOTN MELÉNDEZ During your visit today, we recorded [...] all of your current medications, including any Tvkr-lup-Ziacigk medications with you. DIABETIC PATIENTS Use G2 [...] not use suppositories. Referring Provider: GOSIA MCMANUS [[id number]] Allergies As of Date: 03/01/2019 Noted Allergy [...] sing Cologuard test [R19.5] Order(s):INSERT IV ([place]) [[id number]] Order #: [id number]: 1 FUTURE IV DISCONTINUE [[id number]] Order #: [id number]: 1 FUT URE INSERT IV ([place]) [[id number]] Order #: [id number]: 1 COLONOSCOPY - DIAGNOSTIC [[id number]] Order #: [id number] FUTURE Prescriptions as of 03/01/2019 Sig: CARVEDILOL PHOSPHATE ER 80 MG* Take 80 mg by mouth. MISCELLANEOUS MEDICAL SUPPLY * Use as directed ROSUVASTATIN 40 MG TABLET Take 40 mg by mouth. TRIAMTERENE 37.5 MG-HYDROCHLO* Take 1 tablet by mouth. Problem List As Of Date 03/01/2019 Noted Resolved Positive colorectal cancer screening using [place]*INVALI D FOR* Other instructions from your clinician: [...] of your current medications , including any Maqk-duc-Hfalyqc medications with you. DIABETIC PATIENTS Use G2 [...] 03/01/19 PROGRESS on 03-01-2019 PROGRESS HNO ID: [id number] [facility] Author: Anton Meléndez Clevel and Service: [...] DIAGNOSTIC - IV DISCONTINUE - INSERT IV ([place], [place]) - INSERT IV ([place], [place]) Return if symptoms worsen or fail to improve. I have confirmed and edited as necessary, the PFSH and ROS obtained by others. Anton Meléndez MD DATE: 03/01/19 TIME: 3:09 PM Encounters Encounter Date Encounter Type Care Provider Facility Start: 07-24-2020 [facility] Gosia VALENCIA W ashely Mammo End: 07-24-2020 visit by physician Work Phone: Comment on above: Arrived Procedures Date Procedure Procedure Detail Performing Clin ician Start: 07-24-2020 Screening digital breast Darre joaquim Mcmanus tomosynthesis bi Work Phone: Plan of Treatment Date Care Activity Detail Author Start: 03-15-2029 Screening for malignant Colon cancer screen [facility] [place], [place] neoplasm of colon colonoscopy Start: 07-24-2022 Screening for malignant Breast cancer screen [place], [place] neoplasm of breast Start: 07-25-2021 Office Visit 07/25/2021 Office Visit [facility] Medical End: 07-25-2021 Family Group Arabella Camarena MD [address] [place] [address] [phone] Start: 07-20-2021 Annual Wellness Visit Annual Wellness Visit [place], [place] (AWV) (AWV) Start: 07-19-2021 Creatinine measurement Creatinine monitoring [place], [place] Start: 07-19-2021 Lipid panel Lipid screen [place], [place] Start: 07-19-2021 Potassium monitoring Potassium monitoring [place], [place] Start: 07-17-2021 Screening for DEXA (modify frequency [place], [place] osteoporosis per FRAX score) Comment on above: Postponed from 2006 (P atient Refused) Start: 01-17-2021 Office Visit 01/17/2021 Office Visit [facility] Medical End: 01-17-2021 Group Arabella Cooper MD [address] [place] [address] [phone] Start: 08-06-2020 Nurse Only 08/06/2020 Nurse Only [facility] Medical End: 08-06-2020 Family Medicine Group Suhail Ruiz [facility] Start: 09-13-2012 Shingles Vaccine (2 Shingles Vaccine (2 of 3) [place], [place] of 3) Start: 1991 Diabetes screen Diabetes screen [place], [place] Start: 1970 DTaP/Tdap/Td vaccine DTaP/Tdap/Td vaccine (1 - [place], [place] (1 - Tdap) Tdap) Immunizations Immunization Date Immunization Notes Care Provider Facility 07-19-2020 Influenza, High-dose, Gosia Mcmanus [place], [place] Quadv, 65 yrs +, IM (Fluzone) 05-01-2019 Seasonal trivalent Gosia Choe [place], [place] influenza vaccine, adjuvanted, preservative free 04-20-2018 influenza, high dose Gosia Mcmanus [place], [place] seasonal, preservative-free 11-01-2017 pneumococcal Gosia Mcmanus [place], [place] polysaccharide vaccine, 23 valent 10-05-2016 pneumococcal conjugate Gosia Mcmanus [place], [place] vaccine, 13 valent 10-05-2016 Td, unspecified Gosia Mas [place], [place] formulation 06-04-2016 Influenza Vaccine, Gosia Choe [place], [place] unspecified formulation 06-10-2015 influenza virus vaccine, Gosia Mcallister [place], [place] unspecified formulation 07-19-2012 zoster vaccine, live Gosia Mcmanus [place], [place] 05-25-2012 pneumococcal Conjugate, Gosia Mcmanus [place], [place] unspecified formulation Payers Date Payer Category Payer Medicare MEDICARE MEDICARE PART A AND B 4 [id number] 2016-Present [id number] [phone] [address] [address] [phone] [place] [address] 2015 Unknown [employer] [facility] [id number] [address] [id number] 2015-Present [phone] [address] [place] [address] Social History Date Type Detail Facility Start: 07-19-2020 Tobacco smoking status [place] smoker [place] Start: 07-19-2020 Tobacco use and exposure Never used [place] Start: 07-19-2020 Alcohol intake [facility] [place] alcohol (finding) Start: 12-09-2018 History SDOH Physical 3 Tg De Oliveira [place], [place] Activity DPW Start: 12-09-2018 History SDOH Physical 2 Tg De Oliveira [place] Activity MPS Start: 12-09-2018 History SDOH [facility] Start: 12-09-2018 History SDOH [facility] Start: 06-10-2015 Alcohol Comment social [facility] [place] Sex Assigned At Not on file [facility] Exposure to SARS-CoV-2 Not sure Tg Sheppard [facility] [place] (event) Goals Date Patient Goal Desired Activity/Sta [...] other sugar drinks. Patient given after visit [facility] which includes educational information on weight loss. [...] Documents on File Type Date Recorded Patient Housing Grant Analyst Explanati on ACP-Advance Directive ACP-Power of Mathematics Faculty Member Additional Source Comments INFORMATION SOURCE (unrecognized section and content) DATE CREATED AUTHOR AUTHOR'S ORGANIZ ATION 04/09/2019 [facility] hodan DATE CREATED AUTHOR AUTHOR'S ORGANIZATIO N 07/26/2020 [facility] FOR RECORDS PERTAINING TO PATIENTS WHO [...] BE BASED ON THE PRIMARY CLINICAL RECORDS. [employer] [facility]. provides no warranty or guarantee of the accuracy or completeness of information in this document.
--- NOTE | 2022-07-14 13:08 | HP.PCM.HOS_ITS ---
HPI - General General Date of Admission: 07/14/22 Date of Service: 07/14/22 Chief Complaint: Shortness of breath HPI Narrative JOSR RODRIGUEZ, is a 72 F with history pretension not presently on any medications who presented to [facility] 07[facility]14[facility]22 with worsening shortness of breath over several days though significant worsening yesterday, she was laying still. Denies chest pain, no cough. Did report that she had noticed that she was having some swelling in her right leg. In the ED blood pressure was noted to be 191/151 which was confirmed, she was given labetalol and then blood pressures went to systolics in 70s to 80s. Additionally had elevated troponin, hospitalist consulted for admission. Upon evaluation she was still hypotensive and did have episode that was symptomatic though this was improved by evaluation. Reported breathing was roughly the same, denied chest pain, had no other complaints other than swelling in right leg. At that time right lower extremity duplex did come back positive for DVT. CTA was ordered and heparin drip was ordered as well and she was found to have several pulmonary emboli. Blood pressure improved just with fluids and heparin drip and she did not require thrombolysis. Reevaluated several x1 on the floor blood pressure significantly improved and had no further lightheaded or clammy symptoms. [facility] Medical History (Updated 07/14/22 @ 14:[address] Jeremias Richardson MD) High cholesterol HTN (hypertension) Home Medications cholecalciferol (vitamin D3) 25 mcg (1,000 unit) tablet 50 mcg PO DAILY SUPPLEMENT 07/14/22 [History Last Taken 07/13/22 09:00] edelmira root extract 50 mg tablet 100 mg PO DAILY SUPPLEMENT 07/14/22 [History Last Taken 07/13/22 09:00] omega-3 fatty acids 1,000 mg capsule 2,000 mg PO DAILY SUPPLEMENT 07/14/22 [History Last Taken 07/13/22 09:00] potassium citrate 99 mg capsule 198 mg PO DAILY SUPPLEMENT 07/14/22 [History Last Taken 07/13/22 09:00] turmeric root extract 500 mg tablet 1,000 mg PO DAILY SUPPLEMENT 07/14/22 [History Last Taken 07/13/22 09:00] vitamin E mixed 1,000 unit capsule 2,000 unit PO DAILY SUPPLEMENT 07/14/22 [History Last Taken 07/13/22 09:00] Allergy/AdvReac Type Severity Reaction Status Date / Time Penicillins [PCN] Allergy Anaphylaxis Verified 07/14/22 09:10 Sulfa (Sulfonamide Allergy Anaphylaxis Verified 07/14/22 09:10 Antibiotics) Surgical History (Updated 07/14/22 @ 13:51 by Georgette Ackerman) H/O right breast biopsy Social History Smoking Status: Never smoker ROS Constitutional Constitutional: Denies change in weight, chills, fever(s) or night sweats Eyes Eyes: Denies change in vision ENT HEENT: Denies headache(s), nasal congestion or sore throat Cardiovascular Cardiovascular: Denies chest pain or palpitations Respiratory/Chest Respiratory/Chest: Reports shortness of breath with exertion; Denies cough, productive cough or shortness of breath at rest Gastrointestinal Gastrointestinal: Reports other Details: denies changes in bowel or bladder ; Denies abdominal pain Genitourinary Genitourinary: Reports other Details: denies changes in urination Musculoskeletal Musculoskeletal: Reports other Details: Right lower EXTR swelling ; Denies joint pain Neurologic Neurologic: Denies dizziness, focal weakness, headache(s), numbness or tingling Psychiatric Psychiatric: Denies anxiety Hematologic/Lymphatic Hematologic/Lymphatic: Denies easy bleeding Allergic/Immunologic Allergic/Immunologic: Reports other Details: denies rashes Vital Signs Vital Signs Vital Signs: 07/14/22 09:11 07/14/22 09:15 07/14/22 09:19 Temperature 96.4 F L 96.8 F L Temperature Source Temporal Temporal Pulse Rate 85 107 H Respiratory Rate 24 H 22 H Respiratory Effort Short of Breath Respiratory Depth Shallow Respiratory Pattern Tachypnea Blood Pressure 191/151 H Blood Pressure Mean 164 Pulse Ox 92 97 Oxygen Delivery Method Room Air Room Air Room Air 07/14/22 09:55 07/14/22 11:52 Temperature 97.8 F Temperature Source Temporal Pulse Rate 72 Respiratory Rate 16 Respiratory Effort Respiratory Depth Respiratory Pattern Blood Pressure 85/57 L Blood Pressure Mean 66 Pulse Ox 95 92 Oxygen Delivery Method Room Air Room Air Weight Weight: 114.8 kg Body Mass Index (BMI) 39.6 Physical Exam Const alert Constitutional Narrative: Oriented, appears anxious HEENT normocephalic and head/scalp atraumatic Eyes Eyes Narrative: EOM grossly intact, anicteric Neck supple Resp clear to auscultation bilaterally Resp Narrative: Slight increased work of breathing Cardio regular rate and regular rhythm GI soft to palpation, non-tender and non-distended Extremity Extremity Narrative: Trace to 1+ right lower extremity edema Neuro moves all extremities Neuro Narrative: No overt focal deficits appreciated Psych Psych Narrative: Cooperative Results Lab / Micro Data Result Diagrams: 07/14/22 11:10 07/14/22 11:10 Labs: Laboratory Results - last 24 hr 07/14/22 11:10: WBC 10.0, RBC 4.87, Hgb 14.1, Hct 43.4, MCV 89.1, MCH 29.0, MCHC 32.5, RDW Std Deviation 42.3, RDW Coeff of [place] 13.0, Plt Count 198, MPV 9.6, Immature Gran % (Auto) 0.500, Neut % (Auto) 76.5 H, Lymph % (Auto) 14.4 L, Kingfisher % (Auto) 8.2, Eos % (Auto) 0.1, Baso % (Auto) 0.3, Absolute Neuts (auto) 7.7, Absolute Lymphs (auto) 1.45, Nucleated RBC % 0 07/14/22 11:10: Sodium 138, Potassium 4.5, Chloride 105, Carbon Dioxide 22.0, Anion Gap 11, BUN 24 H, Creatinine 1.93 H, Estim Creat Clear Calc 26.00, Est GFR (MDRD) Af Amer 33 L, Est GFR (MDRD) Non-Af 27 L, BUN/Creatinine Ratio 12.4, Glucose 155 H, Calcium 9.0, Troponin I High Sens 2410 H* 07/14/22 11:10: B-Natriuretic Peptide 569.6 H Rhythm Strip Rhythm Strip: Sinus Rhythm Rate: 111 Ectopy: None Radiology Impression Chest X-Ray 07/14/22 09:30 IMPRESSION: No acute abnormality is seen. Electronically Signed: Weston Temple MD at 10:54 EST , Assessment & Plan Assessment/Plan (1) Multiple pulmonary emboli: (2) Acute deep vein thrombosis (DVT) of right lower extremity: PLAN: Plan #Shortness of breath secondary to multiple pulmonary emboli secondary to right lower extremity acute DVT Was not hypoxic or tachycardic and initially was hypertensive in the ED but BP dropped after being given labetalol Right lower extremity duplex did show extensive DVT and CTA did reveal bilateral PEs She was started on heparin, symptoms and blood pressure improved prior to her requiring tPA and she was admitted to telemetry Continue heparin drip Given urgency of starting heparin drip unable to obtain hypercoagulable labs, will try to add on any that may be able to be added onto the labs already obt ained COVID-negative No recent hospitalization or immobility or recent surgery nor recent travel No known cancers at this time, will need any age-appropriate cancer screenings on discharge Has a cousin with history of clots but no personal history no family history of clots On reevaluation blood pressure much improved and no hypotension #NSTEMI likely type II Initial troponin 2410 Never had chest pain and feel this could be explained by her pulmonary embolisms Repeat 2210 and clinically improving #Elevated creatinine Unclear PATO versus CKD Will trend Did receive fluids Avoid nephrotoxic agents #DVT ppx: On heparin drip Cira San MD Charges/Coding Visit Charges Inpatient E&M: 92221 Init Hosp L2
[2022-07-14 13:16] LABS: Reflex Troponin-HS? (from REC) Y
--- NOTE | 2022-07-14 13:18 | NURSING ---
Addendum entered by Shannon Luceor 07/14/22 15:15: PE, DVT Original Note: 108 REYNOLDS HYPERTENSION, DYSPNEA, ELEVATED TROP, RENAL INSUFF
--- OUTSIDE RECORDS SUMMARY | 2022-07-14 13:22 | XMS RPT_ITS | CCD ---
:1950 Author Organization [facility] Care Team Providers Name Role Phone Gosia Mcmanus Primary Care Provider Allergies Allergy Reported Allergy Type Date of Reaction(s) Facility Classification Allergen(s) Onset Cephalexin Drug Allergy 06-07-2015 [facility] [place] Penicillins Propensity to 06-07-2015 [facility] reactions to [place] drug Sulfonamides Propensity to 06-07-2015 [facility] ([facility] source) (Antibiotic) adverse [place] reactions to [place] drug Medications Current Medications Medication Drug Class(es) [...] Test Name Value Interpretation Reference Range Facility [facility] AMOS DIGITAL SCREEN BILATERAL on Patient Name: ASHLIE CARRERO Acct#: [place], [place] [id number] Mammography ACCESSION EXAM DATE/TIME PROCEDURE ORDERING PROVIDER [id number] 07/24/2020 11 :50 EST MG Breast Tomosynthesis MD MARIETTA, GOSIA BI Scr MONEE CPT code 62577 14225 Reason For Exam (MG Breast Tomosynthesis BI [...] MG breast tomosynthesis bl scr performed at [facility]. November 30, 2017, bilateral MG breast tomosynthesis bl scr performed at [facility]. November 25, 2016, bilateral MG breast tomosynthesis bl scr performed at [facility]. July 08, 2015, bilateral screening mammogram perform ed at [facility]. April 052013, bilateral screening mammogram performed at [facility]. TISSUE DENSITY: BI RADS B - There are scattered fibroglandular densities. . FINDINGS: No suspicious masses, architectural distorti ons or suspiciously clustered microcalcifications are identified. There are no significant changes when comp ared with prior studies. IMPRESSION: No mammographic eviden ce of malignancy. Markings on images: BB's = Nipples; ski n lesions Open yankton = Palpable Line = Scar 2D digital mammography and tomosynthesis imaging were performed a nd reviewed with CAD. ASSESSMENT: Category 1 Negative RECOMMENDATION: Routine screening mammogram of both breasts in 1 year. Mammography Report . Report Dictate d on Workstation: [facility] Risk Assessment: This r isk assessment [...] 3:18 PM EST Patient Name: ASHLIE CARRERO [place] Mammography ACCESSION EXAM DATE/TIME PROCEDURE ORDERING PROVIDER [id number] 07/24/2020 11:50 EST MG Breast Tomosynthe inderjit MCMANUS MD, GOSIA BI Aide MONEE CPT code 41046 67008 Reason For Exam (MG Breast Tomosynthesis BI [...] MG breast tomosynthesis bl scr performed at [facility]. November 30, 2017, bilateral MG breast tomosynthesis bl scr performed at [facility] at [facility]. November 25, 2016, bilateral MG breast tomosynthesis bl scr [facility]. July 08, 2015, bilateral screening mammogram performed at [facility] at [facility]. April 25, 2014, bilateral screening mammogram performed at [facility]. TISSUE DENSITY: BIRADS B - There are scattered fibrogl andular densities. . FINDINGS: No suspicious masses, jaziel ectural distortions or suspiciously clustered microcalcifications are identified. There are no significant changes when compared with pr ior studies. IMPRESSION: No mammographic evidence of malignancy. Markings on images: BB's = Nipples; skin lesions Open yankton = Palpable Line = Scar 2D digital [...] MG Breast Tomosynthesis Patient Name: ASHLIE CARRERO [facility] Scr Bl System Mammography ACCESSION EXAM DATE/TIME PROCEDURE ORDERING PROVIDER [id number] 07/24/2020 11:50 EST MG Breast Amos synthesis MD MCMANUS DARRELL BI Scr KIKO CPT code 40217 85341 Reason For Exam (MG Breast Tomosynthesis BI [...] MG breast tomosynthesis bl scr performed at [facility] November 30, 2017, bilateral MG breast tomosynthesis bl scr performed at [facility]. November 25, 2016, bilateral MG breast tomosynthesis bl scr performed at [facility] July 08, 2015, bilateral screening mammogram performed at [facility]. April 25, 2014, bilateral screening mammogram performed at [facility]. TISSUE DENSITY: BIRADS B - There are scattered fibrogl andular densities. . FINDINGS: No suspicious masses, jaziel ectural distortions or suspiciously clustered microcalcifications are identified. There are no significant changes when compared with pr ior studies. IMPRESSION: No mammographic evidence of malignancy. Markings on images: BB's = Nipples; skin lesions Open yankton = Palpable Line = Scar 2D digital [...] PHYSICAL on 03-15-2019 HISTORY PHYSICAL HNO ID: [id number] [facility] Author: Anton Meléndez Clevel and Service: ? [...] MD OBSOLETE on 03-15-2019 OBSOLETE Procedure (ASCNOR) [facility] ASHLIE CARRERO ([id number]) 1950 F [place] Date Time Provider Department 03/15/19 10:30 AM [...] discharge instructions Brochures given to patient: BROCHURE [96023] High fiber, colon polyps, diverticulosis and hemorrhoi ds REFERRAL (RECOMMENDATION): Repeat colonoscopy in 5 yea rs Electronically Signed By: Belinda Cole RN In [facility] t: AMBULATORY SURGERY Marquis Reynoso APRN.CRNA 03/15/2019 [...] Service: None Other Remarks: SIGNATURE: Marquis Reynoso APRN.PREVENTIVE MEDICINE PHYSICIAN PATIENT NAME: Mulu Carrero DATE: March 15, 2019 TIME: 11:44 AM PAGER/CONTACT #: [phone] Referring Provider: ANTON MELÉNDEZ [[id number]] Allergies As of Date: 03/15/2019 Noted Allergy Reactio n CEPHALEXIN 06/07/2015 16 - Unknown PENICILLINS 06/07/2015 16 - Unknown SULFA (SULFONAMIDE ANTIBIOTICS) 06/07/2015 16 - Unknow n Date Reviewed: 03/15/2019 Reviewed by: Bruna Goodson RN - Fully Assessed Reason for Visit: Outpatient Colonoscopy [482] Cmt: positive cologaurd Visit Diagnosis:Positive colorectal cancer screening u sing Cologuard test [R19.5] Order(s):COLONOSCOPY - DIAGNOSTIC [[id number]] Order #: [id number]. #:[id number] SURGICAL PATHOLOGY [[id number]] Order #: [id number] Prescriptions as of 03/15/2019 Sig: CARVEDILOL PHOSPHATE ER 80 MG* Take 80 mg by mouth. ROSUVASTATIN 40 MG TABLET Take 40 mg by mouth. TRIAMTERENE 37.5 MG-HYDROCHLO* Take 1 tablet by mouth. MISCELLANEOUS MEDICAL SUPPLY * Use as directed Problem List As Of Date 03/15/2019 Noted Resolved Positive colorectal cancer screening using Hodges*INVALI D FOR* Other instructions from your clinician: [...] discharge instructions Brochures given to patient: BROCHURE [34024] High fiber, colon polyps, diverticulosis and hemorrhoi [...] 15, 2019 TIME: 11:44 AM PAGER/CONTACT #: [phone] Disposition: Return if symptoms worsen or fail to impr ove. Follow-up and Disposition History Recorded Encounter Status:Closed by ANTON MELÉNDEZ on 03/15/19 SURGICAL PATHOLOGY on 03-15-2019 SURGICAL Specimen originated from [facility] Specimen #: [id number] Clini c Submitting Physician: ANTON Buck FINAL [...] in cassette A2. Gross examination performed at [facility], [address] [place] [address] FF 03/16/2019 2:18:40 AM Date of Report: 03/16/2019 Date of Procedure: 03/15/2019 Date of Receipt: 03/15/2019 Submitted by: ANTON MELÉNDEZ Location: [facility] Diagnostic interpretation performed at [facility], [address] [place] [address]. CLIA Number: [id number] CNCO on 03-01-2019 CNCO Letter Text Normal [facility] CNOV on 03-01-2019 CNOV Office Visit (GSTNOR) Normal Clevel and ASHLIE Jauregui ([id number]) 1950 [facility] Date Time Provider Department 03/01/19 3:00 [...] all of your current medications, including any Auvt-tsz-Zhhajfd medications with you. DIABETIC PATIENTS Use G2 [...] not use suppositories. Referring Provider: GOSIA MCMANUS [[id number]] Allergies As of Date: 03/01/2019 Noted Allergy [...] sing Cologuard test [R19.5] Order(s):INSERT IV ([place]) [[id number]] Order #: [id number]: 1 FUTURE IV DISCONTINUE [[id number]] Order #: [id number]: 1 FUT URE INSERT IV ([place]) [[id number]] Order #: [id number]: 1 COLONOSCOPY - DIAGNOSTIC [[id number]] Order #: [id number] FUTURE Prescriptions as of 03/01/2019 Sig: CARVEDILOL PHOSPHATE ER 80 MG* Take 80 mg by mouth. MISCELLANEOUS MEDICAL SUPPLY * Use as directed ROSUVASTATIN 40 MG TABLET Take 40 mg by mouth. TRIAMTERENE 37.5 MG-HYDROCHLO* Take 1 tablet by mouth. Problem List As Of Date 03/01/2019 Noted Resolved Positive colorectal cancer screening using Hodges*INVALI D FOR* Other instructions from your clinician: [...] of your current medications , including any Eadk-iwi-Xmszfio medications with you. DIABETIC PATIENTS Use G2 [...] 03/01/19 PROGRESS on 03-01-2019 PROGRESS HNO ID: [id number] [facility] Author: Anton Meléndez Clevel and Service: [...] DIAGNOSTIC - IV DISCONTINUE - INSERT IV ([place]) - INSERT IV ([place]) Return if symptoms worsen or fail to improve. I have confirmed and edited as necessary, the PFSH and ROS obtained by others. Anton Meléndez MD DATE: 03/01/19 TIME: 3:09 PM Encounters Encounter Date Encounter Type Care Provider Facility Start: 07-24-2020 [facility] Gosia VALENCIA W ashely Mammo End: 07-24-2020 visit by physician Work Phone: Comment on above: Arrived Procedures Date Procedure Procedure Detail Performing Clin ician Start: 07-24-2020 Screening digital breast Darre joaquim Mcmanus tomosynthesis bi Work Phone: Plan of Treatment Date Care Activity Detail Author Start: 03-15-2029 Screening for malignant Colon cancer screen [facility] [place], [place] neoplasm of colon colonoscopy Start: 07-24-2022 Screening for malignant Breast cancer screen [place], [place] neoplasm of breast Start: 07-25-2021 Office Visit 07/25/2021 Office Visit [facility] Medical End: 07-25-2021 Family Group Arabella Camarena MD [address] [place] [address] [phone] Start: 07-20-2021 Annual Wellness Visit Annual Wellness Visit [place], [place] (AWV) (AWV) Start: 07-19-2021 Creatinine measurement Creatinine monitoring [place], [place] Start: 07-19-2021 Lipid panel Lipid screen [place], [place] Start: 07-19-2021 Potassium monitoring Potassium monitoring [place], [place] Start: 07-17-2021 Screening for DEXA (modify frequency [place], [place] osteoporosis per FRAX score) Comment on above: Postponed from 2006 (P atient Refused) Start: 01-17-2021 Office Visit 01/17/2021 Office Visit [facility] Medical End: 01-17-2021 Group Arabella Cooper MD [address] [place] [address] [phone] Start: 08-06-2020 Nurse Only 08/06/[address] [facility] Medical End: 08-06-2020 Family Medicine Group Suhail Ruiz [facility] Start: 09-13-2012 Shingles Vaccine (2 Shingles Vaccine (2 of 3) [place], [place] of 3) Start: 1991 Diabetes screen Diabetes screen [place], [place] Start: 1970 DTaP/Tdap/Td vaccine DTaP/Tdap/Td vaccine (1 - [place], [place] (1 - Tdap) Tdap) Immunizations Immunization Date Immunization Notes Care Provider Facility 07-19-2020 Influenza, High-dose, Gosia Mcmanus [place], [place] Quadv, 65 yrs +, IM (Fluzone) 05-01-2019 Seasonal trivalent Gosia Choe [place], [place] influenza vaccine, adjuvanted, preservative free 04-20-2018 influenza, high dose Gosia Mcmanus [place], [place] seasonal, preservative-free 11-01-2017 pneumococcal Gosia Mcmanus [place], [place] polysaccharide vaccine, 23 valent 10-05-2016 pneumococcal conjugate Gosia Mcmanus [place], [place] vaccine, 13 valent 10-05-2016 Td, unspecified Gosia Mas [place], [place] formulation 06-04-2016 Influenza Vaccine, Gosia Choe [place], [place] unspecified formulation 06-10-2015 influenza virus vaccine, Gsoia [facility], [place] unspecified formulation 07-19-2012 zoster vaccine, live Gosia Mcmanus [place], [place] 05-25-2012 pneumococcal Conjugate, Gosia Mcmanus [place], [place] unspecified formulation Payers Date Payer Category Payer Medicare MEDICARE MEDICARE PART A AND B 4 [id number] 2016-Present [id number] [phone] [address] [address] [phone] [place] [address] 2015 Unknown [employer] [facility] [id number] [address] [id number] 2015-Present [phone] [phone] [address] [place] [address] Social History Date Type Detail Facility Start: 07-19-2020 Tobacco smoking status Never smoker [place] Start: 07-19-2020 Tobacco use and exposure Never used [place] Start: 07-19-2020 Alcohol intake [facility] [place] alcohol (finding) Start: 12-09-2018 History SDOH Physical 3 Tg De Oliveira [place], [place] Activity DPW Start: 12-09-2018 History SDOH Physical 2 Tg De Oliveira [place], [place] Activity MPS Start: 12-09-2018 [facility] SD[facility]: 12-09-2018 [facility] SDOH [facility] Start: 06-10-2015 Alcohol Comment social [facility] [place] Sex Assigned At Not on file [facility] Exposure to SARS-CoV-2 Not sure Tg [place] [facility] [place] (event) Goals Date Patient Goal Desired Activity/Sta [...] other sugar drinks. Patient given after visit [facility] which includes educational information on weight [...] Documents on File Type Date Recorded Patient Systems Programmer Explanati on ACP-Advance Directive ACP-Power of Podiatrist Assistant Additional Source Comments INFORMATION SOURCE (unrecognized section and content) DATE CREATED AUTHOR AUTHOR'S ORGANIZ ATION 04/09/2019 [facility] hodan DATE CREATED AUTHOR AUTHOR'S ORGANIZATIO N 07/26/2020 [facility] FOR RECORDS PERTAINING TO PATIENTS WHO [...] BE BASED ON THE PRIMARY CLINICAL RECORDS. [employer] [facility]. provides no warranty or guarantee of the accuracy or completeness of information in this document.
[2022-07-14 14:08] LABS: Troponin-I HS 2210 pg/mL (3.0-54.0)
[2022-07-14] MEDS: Heparin Injection (Vial) 5,000 UNIT/ML VIAL 9500 UNIT IV (14:12)
[2022-07-14] MEDS: HEPARIN/D5w 25,000 UNITS 25,000 UNITS/250 ML IV.SOLN. 16 UNITS CONT INF (14:19)
[2022-07-14 14:30] LABS: International Normalized Ratio 1.2; Prothrombin Time (Protime)PT. 14.7 SECONDS (11.7-14.9)
[2022-07-14 14:31] LABS: Partial Thromboplast Time 31.8 Seconds (24.1-36.2)
[2022-07-14 21:52] LABS: Partial Thromboplast Time > 200.0 Seconds (24.1-36.2)
[2022-07-15 03:15] VITALS: BP 138/82; PULSE 87; RESP 18; TEMP 36.4; O2SAT 93
--- NOTE | 2022-07-15 05:12 | EKG12_ITS ---
Test Reason : AM EKG Blood Pressure : / mmHG Vent. Rate : 086 BPM Atrial Rate : 086 BPM P-R Int : 156 ms QRS Dur : 096 ms QT Int : 386 ms P-R-T Axes : 033 -30 046 degrees QTc Int : 461 ms Normal sinus rhythm Left axis deviation Low voltage QRS Nonspecific ST and T wave abnormality Abnormal ECG When compared with ECG of 14-JUL-2022 18:06, No significant change was found Confirmed by LIZBETH CUEVA, YANA ([id number]), rewrite editor DANNIE HUGHES ([id number]) on 07/23/2022 1:58:19 PM Referred By: Confirmed By:LIZANDRO NIEVES MD
[2022-07-15 06:42] LABS: Hematocrit 39.3 % (37-47); Hemoglobin 12.8 g/dL (12.0-15.0); Mean Corp Hgb Conc 32.6 g/dL (32-36); Mean Corpuscular Hgb 28.6 pg (27.0-32.0); Mean Corpuscular Volume 87.9 fL (81-99); Mean Platelet Vol. 10.6 fl (6.2-12.0); Platelet Count 217 K/mm3 (150-450); RBC Distribution Width CV 13.3 % (11.6-14.6); RBC Distribution Width SD 43.2 fl (35.1-43.9); Red Blood Count 4.47 M/mm3 (4.2-5.4); White Blood Count 12.6 K/mm3 (4.4-11.0)
[2022-07-15 07:11] LABS: ALB/GLOB Ratio 0.7 RATIO (0.9-2.4); AST(SGOT) 44 U/L (15-37); Alanine Aminotransfer ALT/SGPT 47 U/L (13-56); Albumin, Serum 2.8 g/dL (3.2-5.0); Alkaline Phosphatase 104 U/L (45-117); Anion Gap 8 (5-15); BUN 32 mg/dL (7-18); BUN/Creat Ratio 16.2 RATIO (10-20); Chloride 109 mmol/L (98-107); Creatinine, Serum 1.97 mg/dL (0.55-1.02); EST Glomerular Filtration Rate 27 mL/min (>60); Est Glom Filt Rate - Afr Amer 32 mL/min (>60); Estimated Creatinine Clearance 24.52 ml/min; Glucose 109 mg/dL (74-106); Potassium 3.9 mmol/L (3.5-5.1); Protein, Total 6.8 g/dL (6.4-8.2); Sodium Level 138 mmol/L (136-145)
[2022-07-15 07:18] LABS: Partial Thromboplast Time 120.5 Seconds (24.1-36.2)
--- NOTE | 2022-07-15 07:55 | US_ITS ---
STUDY: RENAL ULTRASOUND - COMPLETE REASON FOR EXAM: Female, 72 years old. Cr 1.97, unclear duration or cause TECHNIQUE: Ultrasound evaluation of the kidneys was performed with real-time and static ingram-scale imaging. COMPARISON: None. FINDINGS: RIGHT KIDNEY: Normal location of the right kidney, which is normal in size. The right kidney measures 9.9 cm x 5 cm x 3.7 cm. There is a normal cortex of the right kidney. The renal cortex measures 1.5 cm. There is no right renal mass or cyst. There are no right renal calculi. There is no right hydronephrosis. DISTAL RIGHT URETER: There is non-visualization of the distal right ureter. There is no demonstrated right ureterovesical junction calculus. There is a visualized right ureteral jet. LEFT KIDNEY: Normal location of the left kidney, which is normal in size. The left kidney measures 10.9 cm x 5.3 cm x 4.6 cm. There is a normal cortex of the left kidney. The renal cortex measures 1.9 cm. There is no left renal mass or cyst. There are no left renal calculi. There is no left hydronephrosis. DISTAL LEFT URETER: There is non-visualization of the distal left ureter. There is no demonstrated left ureterovesical junction calculus. There is a visualized left ureteral jet. BLADDER: The distended urinary bladder has a volume of 80.2 ml. There is a normal wall thickness of the distended urinary bladder. There is no demonstrated mass within the urinary bladder. There are no demonstrated bladder calculi. US/Kidney and Bladder IMPRESSION: Normal ultrasound of the kidneys and urinary bladder. Electronically Signed: Weston Temple MD at 13:51 EST ,
--- NOTE | 2022-07-15 08:03 | ECHOD_ITS ---
Version 2 Reason For Study: DYSPNEA Procedure This was a 2D Doppler, Color Flow transthoracic echocardiogram. Exam performed portable in patient room. Left Ventricle Normal LV size. D shaped septum in systole and diastole. Left ventricular systolic function is normal. The estimated ejection fraction is 55 %. Stage 1 diastolic dysfunction. No regional wall motion abnormalities noted. Right Ventricle Moderately dilated right ventricle. Moderate segmental dysfunction of right ventricle. Apical sparing. Atria Normal left atrium. Normal right atrium. Mitral Valve Normal mitral valve. Tricuspid Valve Normal tricuspid valve. Mild to moderate (1-2+) tricuspid valve insufficiency. Pulmonary artery systolic pressure is 48 mmHg. Aortic Valve Normal aortic valve. Trisinus/trileaflet aortic valve. Pulmonic Valve Normal pulmonic valve. Great Vessels Normal aortic root. The pulmonary artery is normal size. Normal inferior vena cava. Pericardium/Pleural No pericardial effusion. MMode/2D Measurements & Calculations RVDd: 3.1 cm Ao root diam: 3.1 cm LAV(MOD-sp4): 63.1 ml LVAd ap4: 18.2 cm2 SV(MOD-sp4): 28.6 ml SV(sp4-el): 26.7 ml LVLd ap4: 7.3 cm EDV(MOD-sp4): 41.4 ml EDV(sp4-el): 38.7 ml LVAs ap4: 9.0 cm2 LVLs ap4: 5.7 cm ESV(MOD-sp4): 12.8 ml ESV(sp4-el): 12.0 ml EF(MOD-sp4): 69.1 % EF(sp4-el): 69.1 % LA A4 area: 22.3 cm2 RA A4 area: 15.9 cm2 Time Measurements MV dec time: 0.21 sec Doppler Measurements & Calculations MV E max george: 41.9 cm/sec Lat Peak E' George: 7.3 cm/sec Med Peak E' George: 5.0 cm/sec MV A max george: 60.6 cm/sec E/E' lat: 5.7 E/E' med: 8.3 MV E/A: 0.69 MV V2 max: 91.3 cm/sec Ao V2 max: 101.6 cm/sec MV max P.4 mmHg MV dec slope: 206.0 cm/sec2 Ao max P.1 mmHg MV V2 mean: 50.4 cm/sec Ao V2 mean: 72.0 cm/sec MV mean P.2 mmHg Ao mean P.4 mmHg MV V2 VTI: 21.6 cm Ao V2 VTI: 16.2 cm AV (velocity ratio): 0.73 LV V1 max: 74.8 cm/sec PA V2 max: 78.5 cm/sec TR max george: 328.9 cm/sec LV V1 max P.3 mmHg PA V2 mean: 49.3 cm/sec TR max P.3 mmHg LV V1 mean P.3 mmHg LV V1 mean: 53.6 cm/sec LV V1 VTI: 11.8 cm ECHO/Echo Complete Interpretation Summary Normal LV size. Left ventricular systolic function is normal. The estimated ejection fraction is 55 %. Moderately dilated right ventricle. Moderate segmental dysfunction of right ventricle. Apical sparing Stage 1 diastolic dysfunction. D shaped septum in systole and diastole. Ordering Physician: Cira San Referring Physician: GOSIA MCMANUS Performed By: Sanna Ying RCS
[2022-07-15] MEDS: HEPARIN/D5w 25,000 UNITS 25,000 UNITS/250 ML IV.SOLN. 13 UNITS CONT INF (08:16)
[2022-07-15 09:15] VITALS: BP 153/107; PULSE 82; RESP 20; TEMP 36.9; O2SAT 94
--- NOTE | 2022-07-15 09:55 | CASEMGMT ---
RN CM Face to Face with patient for initial transition planning/care coordination assessment. RN CM introduced self and role at [facility]. Patient lying in bed, alert and oriented. Patient willing to participate in assessment and is able to answer all questions appropriately. Care providers, pharmacy, and demographics verified. Patient wishes to discharge home, denies need for home health at this time. Patient states she has no further needs or concerns at this time. CM to follow for discharge planning needs that may arise. PCP: Frank Specialists: none Preferred Pharmacy: [facility] Insurance: [employer]ah[employer]ppable [facility] Prescription Benefit: yes Living Will/HPOA: none LNOK: Cousin Living Arrangements: Patient lives alone in a single story home with 3 steps to enter. Patient states she is independent at home. Transportation: self, cousin DME/HHC: Patient she has shower chair, BSC, cane, walker, and grab bars. No previous HHC or SNF. Disposition Plan: Patient to discharge home with family support and follow-up plans in place. Yessica CHRISTIANSON, RN, CM
[2022-07-15 11:00] VITALS: O2SAT 93
[2022-07-15] MEDS: FLU VACC QS2022-23(6MOS UP)/PF 60 MCG/0.5 ML SYRINGE IM (12:04)
[2022-07-15 14:00] VITALS: BP 151/87; PULSE 87; RESP 20; TEMP 36.5; O2SAT 96
[2022-07-15 14:30] VITALS: O2SAT 89; O2SAT 96
--- NOTE | 2022-07-15 14:47 | NURSING ---
Reviewed student nurse documentation
--- NOTE | 2022-07-15 14:49 | CASEMGMT ---
Addendum entered by Yessica Simpson 07/15/22 16:44: Eliquis savings card provided to patient. Original Note: RN CM reviewed oxygen testing and patient does not qualify for home oxygen.
--- NOTE | 2022-07-15 15:05 | CHAPLAIN ---
Type of Pastoral Visit _x__ Initial Visit ___ Follow-up Visit ___ On-call Visit ___ General Patient Visit ___ Spiritual Assessment ___ Family Conference ___ Bereavement ___ Rapid Response ___ Code Blue ___ Other (describe below) Pastoral Care Referral From _x__ Patient ___ Family ___ Nurse ___ Physician ___ Pipe Wrapping Machine Operator ___ Hotel Service Manager ___ Other (describe below) Sacrament/Intervention _x__ Active listening ___ Anointing ___ Pentecostalism ___ Bereavement ___ Communion _x__ Karissa exploration ___ ___ Life review _x__ Prayer ___ Reconciliation ___ Sacrament of Sick _x__ Supportive presence ___ Wedding ___ Other (describe below) Pastoral Comments patient gives a report on her health issues and states that she will need more interventions and changes in her life going forward; pt is hoping to return home soon to her two dogs who are there alone; pt explains her current practice of sabianism as she has not been to sabianism for three years; pt is watching sabianism on TV; pt requests prayer support
--- NOTE | 2022-07-15 16:09 | DCINST_ITS ---
Discharge Instructions Diet Discharge Diet: No restrictions Activity Discharge Activity: Return to Normal Activity (Advance activity as tolerated) Follow Up Care Test Results: Test results from this visit will be discussed in further detail at your follow- up appointment, if applicable. Discharge Plan Admission Admit Date/Time: 07/14/22 13:01 Primary Reason for Your Visit: Shortness of breath Attending Provider: Cira San Primary Care Provider: Sacha Marie Instructions Patient Instructions: Embolism Pulmonary Dc, ED Deep Vein Thrombosis (DVT) Additional Instructions / Restrictions: *Please take this with you to your next doctors appointment* DISCHARGE INSTRUCTIONS PLEASE READ ? You were diagnosed with a blood clot in your leg and blood clots in your lungs. You improved after be placed on a blood thinner and will be discharged on Eliquis (blood thinner) twice daily, take as close to every 12 hours as possible. For 7 days you will take 10 mg (2 tabs) twice daily followed by 1 tab twice daily thereafter. It is important not to miss doses of this medication and to take it as prescribed. ? You did have an ultrasound of your heart which showed some strain on the right side, would advise that you have a follow-up ultrasound of your heart (echocardiogram) on an outpatient basis in 2 to 4 weeks with your primary care physician to assess for any further heart strain, this can be coordinated through your primary care physician's office and would advise discussing this at your hospital follow-up appointment ?Additionally you were noted to have elevated kidney numbers, unclear the duration of this but would advise you follow-up with your primary care physician and discuss further work-up and management ? You had labs sent to evaluate why you may have developed a blood clot and these results are pending, please discuss with your primary care physician and these will also be available on the online portal once the results are final. ?Recommend routine mammogram, colonoscopy, Pap smear through primary care physician's office if applicable ? I spoke with your primary care physician's office and you have an appointment scheduled on 07/30/2022 at 2:30 PM. You have also been placed on a cancellation list in the event an earlier appointment becomes available. It will be very important for you to attend the appointment on 07/30 at 2:30 PM for continuing coordination of care and treatment. If you have any questions about scheduling please contact your primary care physician's office -Please call your primary care provider's office upon discharge to schedule a hospital follow up within 1 week. -For any concerning signs or symptoms please call 911 or proceed to the nearest emergency department Discharge Orders/Prescriptions Prescriptions: New Tony DVT-PE Treat 30D Start 5 mg (74 tabs) tablets,dose pack See Rx Instructions .ROUTE .COMPLEX Qty: 74 2RF Rx Instructions: Take 2 tabs twice daily for 7 days followed by 1 tab twice daily thereafter Continued omega-3 fatty acids 1,000 mg Capsule 2,000 mg PO DAILY cholecalciferol (vitamin D3) 25 mcg (1,000 unit) Tablet 50 mcg PO DAILY vitamin E mixed 1,000 unit Capsule 2,000 unit PO DAILY turmeric root extract 500 mg Tablet 1,000 mg PO DAILY Discontinued potassium citrate 99 mg Capsule 198 mg PO DAILY edelmira root extract 50 mg Tablet 100 mg PO DAILY Referrals / Follow Up: Sacha Marie MD [Primary Care Provider] - 07/30/22 2:30 pm Disposition Disposition (needs filled in before D/C Order can be placed): Home, Self Care
--- NOTE | 2022-07-15 16:35 | DS.PCM_ITS ---
Providers Date of Admission: 07/14/22 Date of Discharge: 07/15/22 Primary Care Physician: Dr. Sacha Marie MD Reason For Visit: DVT and PE Diagnosis Discharge Diagnosis (1) Multiple pulmonary emboli: Status: Acute Code(s): I26.99 - Other pulmonary embolism without acute cor pulmonale (2) Acute deep vein thrombosis (DVT) of right lower extremity: Status: Acute Code(s): I82.401 - Acute embolism and thrombosis of unspecified deep veins of right lower extremity Plan #Shortness of breath secondary to multiple pulmonary emboli secondary to right lower extremity acute DVT #NSTEMI type II #Elevated creatinine Medications at Discharge Home Medications cholecalciferol (vitamin D3) 25 mcg (1,000 unit) tablet 50 mcg PO DAILY SUPPLEMENT 07/14/22 omega-3 fatty acids 1,000 mg capsule 2,000 mg PO DAILY SUPPLEMENT 07/14/22 turmeric root extract 500 mg tablet 1,000 mg PO DAILY SUPPLEMENT 07/14/22 vitamin E mixed 1,000 unit capsule 2,000 unit PO DAILY SUPPLEMENT 07/14/22 apixaban 5 mg (74 tabs) tablets in a dose pack (Eliquis DVT-PE Treat 30D Start) See Rx Instructions .Route .COMPLEX #74 tabs 07/15/22 Hospital Course Procedures - (Echocardiogram) Summary of Care Provided Minutes Spent on Discharge: 35 Hospital Course: Ms. Carrero is a 72-year-old female with a history of hypertension who is not presently on any medication who presented to [facility] 07/14/2022 with worsening shortness of breath over several days the significant worsening the day prior to admission. Denied cough or chest pain but had noticed some swelling in her right leg 1 to 2 days before presentation. In the ED her blood pressure was noted to be 191/151 which was confirmed and given the shortness of breath and elevated creatinine it was deemed she had hypertensive emergency and she was given labetalol. Her systolic blood pressure then went to the 70s?80s. Also had elevated troponin. Hospitalist consulted for admission. On evaluation blood pressure was beginning to improve and she denied having any further symptomatic hypotensive episodes. During evaluation the venous duplex of her right leg did come back positive for DVT. Given the shortness of breath and low blood pressure despite lack of hypoxia or tachycardia she had a CTA and heparin drip ordered and she was noted to have multiple bilateral pulmonary emboli. Blood pressure improved with just fluids and heparin drip and she did not require thrombolysis. She was reevaluated multiple times and had continued improvement. Did have elevated troponin and BNP on admission, troponin down trended on second draw this is felt to be type II. Echo obtained and did show right heart strain the following day. Blood pressure and heart rate stable and no hypoxia even on ambulation. Discussed staying for further monitoring versus discharge home as was patient's preference. After discussing risks and benefits, not actively making changes at this time and she is vitally stable and feels well enough to go home. Had significant recovery and short period of time. Still having some shortness of breath but able to tolerate activity and breathing is improved as were vitals. Discussed warning signs and symptoms of when to come back to the ER if needed. She verbalized her understanding. She was noted to have elevated creatinine as well while she was here but we do not have a baseline. Renal ultrasound unremarkable and she was urinating well. No significant change in creatinine following day and she was urinating well and now had better p.o. intake. Can have follow-up BMP and further work-up through PCPs office. Called her primary care physician's office to assure follow-up made and appointment is 07/30 at 2:30 PM, additionally placed her on a cancellation list. Will discharge on Eliquis. Instructions provided as below: Please take this with you to your next doctors appointment* DISCHARGE INSTRUCTIONS PLEASE READ ? You were diagnosed with a blood clot in your leg and blood clots in your lungs.? You improved after be placed on a blood thinner and will be discharged on Eliquis (blood thinner) twice daily, take as close to every 12 hours as possible.? For 7 days you will take 10 mg (2 tabs) twice daily followed by 1 tab twice daily thereafter.? It is important not to miss doses of this medication and to take it as prescribed. ? You did have an ultrasound of your heart which showed some strain on the right side, would advise that you have a follow-up ultrasound of your heart (echocardiogram) on an outpatient basis in 2 to 4 weeks with your primary care physician to assess for any further heart strain, this can be coordinated through your primary care physician's office and would advise discussing this at your hospital follow-up appointment ?Additionally you were noted to have elevated kidney numbers, unclear the duration of this but would advise you follow-up with your primary care physician and discuss further work-up and management ? You had labs sent to evaluate why you may have developed a blood clot and these results are pending, please discuss with your primary care physician and these will also be available on the online portal once the results are final. ?Recommend routine mammogram, colonoscopy, Pap smear through primary care physician's office if applicable ? I spoke with your primary care physician's office and you have an appointment scheduled on 07/30/2022 at 2:30 PM.? You have also been placed on a cancellation list in the event an earlier appointment becomes available.? It will be very important for you to attend the appointment on 07/30 at 2:30 PM for continuing coordination of care and treatment.? If you have any questions about scheduling please contact your primary care physician's office -Please call your primary care provider's office upon discharge to schedule a hospital follow up within 1 week. -For any concerning signs or symptoms please call 911 or proceed to the nearest emergency department Would advise to call your primary care physician's office upon discharge to obtain order for lab work (BMP) to be done in 3 to 5 days to monitor your kidney function Discussed these discharge instructions as well with Ms. Carrero Physical Exam Const alert and no apparent distress Constitutional Narrative: Oriented HEENT normocephalic and head/scalp atraumatic Eyes Eyes Narrative: EOM grossly intact, anicteric Neck supple Resp clear to auscultation bilaterally Resp Narrative: Slight increase improved Cardio regular rate and regular rhythm GI soft to palpation, non-tender and non-distended Extremity Extremity Narrative: Trace right lower extremity edema Neuro moves all extremities Neuro Narrative: No overt focal deficits appreciated Psych Psych Narrative: Cooperative Weight / BMI Weight Weight: 113.8 kg Body Mass Index (BMI) 40.2 ABG / Lab / Microbiology Data Result Diagrams: 07/15/22 06:05 07/15/22 06:05 Laboratory: Laboratory Results - last 24 hr 07/14/22 20:38: APTT > 200.0 H* 07/15/22 06:05: WBC 12.6 H, RBC 4.47, Hgb 12.8, Hct 39.3, MCV 87.9, MCH 28.6, MCHC 32.6, RDW Std Deviation 43.2, RDW Coeff of [place] 13.3, Plt Count 217, MPV 10.6 07/15/22 06:05: Sodium 138, Potassium 3.9, Chloride 109 H, Carbon Dioxide 21.0, Anion Gap 8, BUN 32 H, Creatinine 1.97 H, Estim Creat Clear Calc 24.52, Est GFR (MDRD) Af Amer 32 L, Est GFR (MDRD) Non-Af 27 L, BUN/Creatinine Ratio 16.2, Glucose 109 H, Calcium 9.0, Total Bilirubin 0.40, AST 44 H, ALT 47, Alkaline Phosphatase 104, Total Protein 6.8, Albumin 2.8 L, Globulin 4.0, Albumin/Globulin Ratio 0.7 L 07/15/22 06:05: APTT 120.5 H* Microbiology: Microbiology 07/14/22 17:32 Nasal Secretion SARS-CoV-2 Antigen (Rapid) - Final Radiography Diagnostic Testing: Radiology Impression Renal Ultrasound 07/15/22 07:55 IMPRESSION: Normal ultrasound of the kidneys and urinary bladder. Electronically Signed: Weston Temple MD at 13:51 EST , Echocardiogram 07/15/22 08:03 Interpretation Summary Normal LV size. Left ventricular systolic function is normal. The estimated ejection fraction is 55 %. Moderately dilated right ventricle. Moderate segmental dysfunction of right ventricle. Apical sparing Stage 1 diastolic dysfunction. D shaped septum in systole and diastole. Ordering Physician: Cira San Referring Physician: SACHA MARIE Performed By: Sanna Ying RCS D/C Instructions Discharge Diet: No restrictions Meaningful Use Info Meaningful Use Diagnoses (Choose all that apply): VTE VTE Anticoag overlap given w/in hospital stay or rx'd at dc?: Yes Pt receive overlap for 5 days?: No Reason overlap not ordered, prescribed, or given for 5 days: Treatment Not Indicated Discharge Plan Admission Admit Date/Time: 07/14/22 13:01 Primary Reason for Your Visit: Shortness of breath Attending Provider: Cira San Primary Care Provider: Sacha Marie Instructions Patient Instructions: Embolism Pulmonary Dc, ED Deep Vein Thrombosis (DVT) Additional Instructions / Restrictions: *Please take this with you to your next doctors appointment* DISCHARGE INSTRUCTIONS PLEASE READ ? You were diagnosed with a blood clot in your leg and blood clots in your lungs. You improved after be placed on a blood thinner and will be discharged on Eliquis (blood thinner) twice daily, take as close to every 12 hours as possible. For 7 days you will take 10 mg (2 tabs) twice daily followed by 1 tab twice daily thereafter. It is important not to miss doses of this medication and to take it as prescribed. ? If you have any increased or concerning bleeding or incur any injury that will not stop bleeding please contact your primary care physician or proceed to the emergency department ? You did have an ultrasound of your heart which showed some strain on the right side, would advise that you have a follow-up ultrasound of your heart (echocardiogram) on an outpatient basis in 2 to 4 weeks with your primary care physician to assess for any further heart strain, this can be coordinated thro ugh your primary care physician's office and would advise discussing this at your hospital follow-up appointment ?Additionally you were noted to have elevated kidney numbers, unclear the duration of this but would advise you follow-up with your primary care physician and discuss further work-up and management ? You had labs sent to evaluate why you may have developed a blood clot and these results are pending, please discuss with your primary care physician and these will also be available on the online portal once the results are final. ?Recommend routine mammogram, colonoscopy, Pap smear through primary care physician's office if applicable ? I spoke with your primary care physician's office and you have an appointment scheduled on 07/30/2022 at 2:30 PM. You have also been placed on a cancellation list in the event an earlier appointment becomes available. It will be very important for you to attend the appointment on 07/30 at 2:30 PM for continuing coordination of care and treatment. If you have any questions about scheduling please contact your primary care physician's office -Please call your primary care provider's office upon discharge to schedule a hospital follow up within 1 week. -For any concerning signs or symptoms please call 911 or proceed to the nearest emergency department -Would advise to call your primary care physician's office upon discharge to obtain order for lab work (BMP) to be done in 3 to 5 days to monitor your kidney function Discharge Orders/Prescriptions Prescriptions: New Eliquis DVT-PE Treat 30D Start 5 mg (74 tabs) tablets,dose pack See Rx Instructions .ROUTE .COMPLEX Qty: 74 2RF Rx Instructions: Take 2 tabs twice daily for 7 days followed by 1 tab twice daily thereafter Continued omega-3 fatty acids 1,000 mg Capsule 2,000 mg PO DAILY cholecalciferol (vitamin D3) 25 mcg (1,000 unit) Tablet 50 mcg PO DAILY vitamin E mixed 1,000 unit Capsule 2,000 unit PO DAILY turmeric root extract 500 mg Tablet 1,000 mg PO DAILY Discontinued potassium citrate 99 mg Capsule 198 mg PO DAILY edelmira root extract 50 mg Tablet 100 mg PO DAILY Referrals / Follow Up: Sacha Marie MD [Primary Care Provider] - 07/30/22 2:30 pm Disposition Disposition (needs filled in before D/C Order can be placed): Home, Self Care Charges/Coding Visit Charges Inpatient E&M: 97567 Disch Hosp >30min
[2022-07-15] MEDS: APIXABAN 5 MG TABLET 10 MG PO (17:48)
[2022-07-16 17:48] LABS: Anti-Cardiolipin Ab, IgG, Qn < 9 GPL U/mL (0-14); Anti-Cardiolipin Ab, IgM, Qn 9 MPL U/mL (0-12)
[2022-07-21 12:08] LABS: Protein C Antigen 86 % (60-150); Protein C, Functional 111 % (73-180)
== END 2022-07-15 18:21 | disposition home or self-care (01) | DRG 176 ==
LOC: ED 12:05 → PCU 13:04
PROVIDERS: Admitting Provider Internal Medicine; Emergency Provider Emergency Medicine; PCP Family Medicine; Visit Provider Internal Medicine
DX: I26.99 Other pulmonary embolism without acute cor pulmonale (principal); I82.411 Acute embolism and thrombosis of right femoral vein; I82.431 Acute embolism and thrombosis of right popliteal vein; I16.1 Hypertensive emergency; I82.461 Acute embolism and thrombosis of right calf muscular vein; E78.00 Pure hypercholesterolemia, unspecified; I10 Essential (primary) hypertension; Z91.14 Patient's other noncompliance with medication regimen; Z79.01 Long term (current) use of anticoagulants; Z23 Encounter for immunization
CPT/HCPCS: 36415; 71045; 71275; 76770; 80048; 80053; 81240; 83880; 84484; 85025; 85027; 85302; 85303; 85610; 85730; 86147; 87811; 93005; 93306; 93971; 99285; G0008; J7040; Q9967; 90686; A4216